=== PATIENT | female | born 1940 | race Caucasian/White ===

== ENCOUNTER 2022-03-24 15:53 | Inpatient (IN) | payer MEDICARE ==
[2022-03-24 16:49] LABS: #Eosinphils 0.2 10x3/uL (0.0-0.5); #Monocytes 0.6 10x3/uL (0.0-1.1); #Neutrophils 4.6 10x3/uL (1.5-8.4); %Basophils 0.5 % (0.0-2.0); %Eosinophils 2.7 % (0.0-6.0); %Lymphocytes 15.6 % (18.0-47.0); %Monocytes 9.7 % (0.0-10.0); %Neutrophils 71.3 % (40.0-75.0); Hemoglobin 11.3 g/dL (12.0-15.5); Mean Corpuscular HGB CONC 32.3 g/dL (32.0-36.0); Mean Corpuscular Hemoglobin 30.3 pg (27.0-33.0); Mean Corpuscular Volume 93.8 fl (81.6-98.3); Mean Platelet Volume 9.3 fl (7.4-10.4); Platelet Count 296 10x3/uL (150-450); RBC Distribution Width 13.2 % (11.5-14.5); Red Blood Cell (RBC) Count 3.73 10x6/uL (3.90-5.03); White Blood Cell (WBC) Count 6.4 10x3/uL (3.5-10.5)
[2022-03-24 17:00] LABS: ALT (SGPT) Less than 6 U/L (8-55); AST (SGOT) 17 U/L (5-34); Albumin 4.2 g/dL (3.4-4.8); Alkaline Phosphatase 68 U/L (40-110); Anion Gap 14 mmol/L (10-20); BUN (Urea Nitrogen) 35 mg/dL (9.8-20.1); Bilirubin, Total 0.3 mg/dL (0.2-1.2); Calc. Creatinine Clearance 0 mL/min (70-130); Carbon Dioxide 24 mmol/L (23-31); Chloride 105 mmol/L (98-107); Globulin 2.4 g/dL (2.4-3.5); Glucose 103 mg/dL (83-110); Potassium 4.6 mmol/L (3.5-5.1); Protein, Total 6.6 g/dL (5.8-8.1); Sodium 138 mmol/L (136-145)
[2022-03-24 17:21] LABS: CKMB 1.9 ng/mL (0-6.6)
[2022-03-24 17:24] LABS: D-Dimer Test 1.02 mg/L FEU (0.19-0.50); INR-International Normal Ratio 0.9; PTT 24.2 sec (22.0-33.0); Prothrombin Time 10.3 sec (9.5-12.1)
[2022-03-24] MEDS ORDERED: Aspirin Chewable 81 MG TAB ONE (17:43)
[2022-03-24 18:10] LABS: SARS-CoV-2 NAA Rapid Test Not Detected (NotDetected)
[2022-03-24] MEDS ORDERED: Furosemide 40 MG/4 ML VIAL ONE (18:45)
[2022-03-24] MEDS ORDERED: Ondansetron PF 4 MG/2 ML Vial IVP PRN (19:17)
[2022-03-24] MEDS ORDERED: Ondansetron ODT 4 MG TAB PO PRN (19:17)
[2022-03-24 20:08] LABS: Troponin I 0.028 ng/mL (< 0.028)
[2022-03-24] MEDS ORDERED: Simvastatin 20 MG TAB PO SCH (21:00)
[2022-03-24] MEDS: Carbidopa/Levodopa 25-100 mg Tablet PO SCH (21:26)
[2022-03-24] MEDS: Atorvastatin Calcium 10 MG TAB PO SCH (21:26)
[2022-03-24] MEDS ORDERED: Nitroglycerin 2% Ointment 1 INCH/1 GM Packet TOP SCH (22:00)
[2022-03-24] MEDS: hydrALAZINE 20 MG/ML VIAL SLOW IVP PRN (22:14)
[2022-03-24 23:16] LABS: Troponin I 0.026 ng/mL (< 0.028)
[2022-03-25] MEDS: Carbidopa/Levodopa 25-100 mg Tablet PO SCH ×5 (00:03→20:14)
[2022-03-25] MEDS: Acetaminophen 325 MG TAB PO PRN ×2 (07:52→18:13)
[2022-03-25] MEDS ORDERED: Furosemide 40 MG/4 ML VIAL SLOW IVP SCH (09:00)
[2022-03-25] MEDS: Aspirin Chewable 81 MG TAB PO SCH (09:57)
[2022-03-25] MEDS: Venlafaxine HCl XR 75 MG CAP PO SCH (09:58)
[2022-03-25] MEDS: Clopidogrel Bisulfate 75 MG TAB PO SCH (10:04)
[2022-03-25] MEDS: Atorvastatin Calcium 10 MG TAB PO SCH (20:15)
[2022-03-25] MEDS ORDERED: Lidocaine 5% Patch TD SCH (22:00)
[2022-03-25] MEDS ORDERED: traMADol HCl 50 MG TAB PO SCH (22:00)
[2022-03-26] MEDS: hydrALAZINE 20 MG/ML VIAL SLOW IVP PRN ×2 (00:48→04:43)
[2022-03-26] MEDS: Carbidopa/Levodopa 25-100 mg Tablet PO SCH ×6 (05:12→23:54)
[2022-03-26 06:00] LABS: Anion Gap 17 mmol/L (10-20); BUN (Urea Nitrogen) 41 mg/dL (9.8-20.1); Calc. Creatinine Clearance 12 mL/min (70-130); Carbon Dioxide 23 mmol/L (23-31); Chloride 102 mmol/L (98-107); Glucose 84 mg/dL (83-110); Potassium 4.5 mmol/L (3.5-5.1); Sodium 137 mmol/L (136-145)
[2022-03-26 06:04] LABS: #Basophils 0.1 10x3/uL (0.0-0.2); #Eosinphils 0.2 10x3/uL (0.0-0.5); #Monocytes 0.8 10x3/uL (0.0-1.1); #Neutrophils 5.7 10x3/uL (1.5-8.4); %Basophils 0.6 % (0.0-2.0); %Lymphocytes 15.1 % (18.0-47.0); %Monocytes 10.3 % (0.0-10.0); %Neutrophils 71.7 % (40.0-75.0); Hemoglobin 10.8 g/dL (12.0-15.5); Mean Corpuscular HGB CONC 33.3 g/dL (32.0-36.0); Mean Corpuscular Hemoglobin 29.9 pg (27.0-33.0); Mean Corpuscular Volume 89.8 fl (81.6-98.3); Mean Platelet Volume 9.7 fl (7.4-10.4); Platelet Count 274 10x3/uL (150-450); RBC Distribution Width 13.3 % (11.5-14.5); Red Blood Cell (RBC) Count 3.61 10x6/uL (3.90-5.03); White Blood Cell (WBC) Count 7.9 10x3/uL (3.5-10.5)
[2022-03-26 06:24] LABS: CKMB 2.1 ng/mL (0-6.6)
[2022-03-26] MEDS: Acetaminophen 325 MG TAB PO PRN ×2 (08:35→21:52)
[2022-03-26] MEDS: Aspirin Chewable 81 MG TAB PO SCH (08:35)
[2022-03-26] MEDS: Clopidogrel Bisulfate 75 MG TAB PO SCH (08:36)
[2022-03-26] MEDS: Venlafaxine HCl XR 75 MG CAP PO SCH (08:37)
[2022-03-26] MEDS ORDERED: Transdermal Patch Removal TOP SCH (16:00)
[2022-03-26] MEDS ORDERED: Polyethylene Glycol 3350 17 GM Packet PO PRN (19:57)
[2022-03-26] MEDS: Atorvastatin Calcium 10 MG TAB PO SCH (21:00)
[2022-03-26] MEDS ORDERED: Lidocaine 5% Patch TD SCH (22:30)
[2022-03-27] MEDS: hydrALAZINE 20 MG/ML VIAL SLOW IVP PRN ×2 (02:17→20:17)
[2022-03-27 05:35] LABS: #Eosinphils 0.2 10x3/uL (0.0-0.5); #Monocytes 0.7 10x3/uL (0.0-1.1); #Neutrophils 3.7 10x3/uL (1.5-8.4); %Basophils 0.2 % (0.0-2.0); %Eosinophils 2.6 % (0.0-6.0); %Lymphocytes 20.1 % (18.0-47.0); %Monocytes 12.1 % (0.0-10.0); %Neutrophils 64.7 % (40.0-75.0); Hemoglobin 9.7 g/dL (12.0-15.5); Mean Corpuscular Hemoglobin 30.2 pg (27.0-33.0); Mean Corpuscular Volume 91.6 fl (81.6-98.3); Mean Platelet Volume 9.2 fl (7.4-10.4); Platelet Count 238 10x3/uL (150-450); RBC Distribution Width 13.4 % (11.5-14.5); Red Blood Cell (RBC) Count 3.21 10x6/uL (3.90-5.03); White Blood Cell (WBC) Count 5.7 10x3/uL (3.5-10.5)
[2022-03-27 05:46] LABS: Anion Gap 14 mmol/L (10-20); BUN (Urea Nitrogen) 45 mg/dL (9.8-20.1); Calc. Creatinine Clearance 12 mL/min (70-130); Calcium 8.6 mg/dL (7.8-10.44); Carbon Dioxide 22 mmol/L (23-31); Chloride 101 mmol/L (98-107); Glucose 84 mg/dL (83-110); Potassium 4.4 mmol/L (3.5-5.1); Sodium 133 mmol/L (136-145)
[2022-03-27] MEDS: Aspirin Chewable 81 MG TAB PO SCH (09:16)
[2022-03-27] MEDS: LANSOPRAZOLE 30 MG CAP PO SCH (09:16)
[2022-03-27] MEDS: Carbidopa/Levodopa 25-100 mg Tablet PO SCH ×4 (09:16→23:17)
[2022-03-27] MEDS: Venlafaxine HCl XR 75 MG CAP PO SCH (09:16)
[2022-03-27] MEDS: Clopidogrel Bisulfate 75 MG TAB PO SCH (09:16)
[2022-03-27] MEDS ORDERED: Transdermal Patch Removal TOP SCH (10:30)
[2022-03-27 18:11] LABS: #Eosinphils 0.1 10x3/uL (0.0-0.5); #Monocytes 0.9 10x3/uL (0.0-1.1); #Neutrophils 5.1 10x3/uL (1.5-8.4); %Basophils 0.4 % (0.0-2.0); %Eosinophils 1.7 % (0.0-6.0); %Lymphocytes 13.3 % (18.0-47.0); %Neutrophils 72.2 % (40.0-75.0); Hemoglobin 10.7 g/dL (12.0-15.5); Mean Corpuscular HGB CONC 32.6 g/dL (32.0-36.0); Mean Corpuscular Hemoglobin 30.1 pg (27.0-33.0); Mean Corpuscular Volume 92.4 fl (81.6-98.3); Mean Platelet Volume 9.2 fl (7.4-10.4); Platelet Count 271 10x3/uL (150-450); RBC Distribution Width 13.5 % (11.5-14.5); Red Blood Cell (RBC) Count 3.55 10x6/uL (3.90-5.03); White Blood Cell (WBC) Count 7.1 10x3/uL (3.5-10.5)
[2022-03-27 18:24] LABS: Lactic Acid 1.5 mmol/L (0.5-2.2)
[2022-03-27 18:29] LABS: ALT (SGPT) Less than 6 U/L (8-55); AST (SGOT) 15 U/L (5-34); Albumin 3.8 g/dL (3.4-4.8); Alkaline Phosphatase 62 U/L (40-110); Anion Gap 16 mmol/L (10-20); BUN (Urea Nitrogen) 46 mg/dL (9.8-20.1); Bilirubin, Total 0.3 mg/dL (0.2-1.2); Calc. Creatinine Clearance 12 mL/min (70-130); Calcium 8.8 mg/dL (7.8-10.44); Carbon Dioxide 23 mmol/L (23-31); Chloride 98 mmol/L (98-107); Globulin 2.7 g/dL (2.4-3.5); Glucose 95 mg/dL (83-110); Potassium 4.7 mmol/L (3.5-5.1); Protein, Total 6.5 g/dL (5.8-8.1); Sodium 132 mmol/L (136-145)
[2022-03-27] MEDS: Acetaminophen 325 MG TAB PO PRN (18:47)
[2022-03-27] MEDS: Atorvastatin Calcium 10 MG TAB PO SCH (23:17)
[2022-03-27] MEDS ORDERED: Lidocaine 5% Patch TD SCH (23:59)
[2022-03-28] MEDS: Carbidopa/Levodopa 25-100 mg Tablet PO SCH ×6 (00:27→22:30)
[2022-03-28] MEDS: Acetaminophen 325 MG TAB PO PRN ×2 (00:27→16:13)
[2022-03-28 05:22] LABS: #Eosinphils 0.2 10x3/uL (0.0-0.5); #Monocytes 0.6 10x3/uL (0.0-1.1); #Neutrophils 3.9 10x3/uL (1.5-8.4); %Basophils 0.5 % (0.0-2.0); %Eosinophils 2.6 % (0.0-6.0); %Lymphocytes 18.1 % (18.0-47.0); %Monocytes 10.6 % (0.0-10.0); %Neutrophils 67.9 % (40.0-75.0); Hemoglobin 9.6 g/dL (12.0-15.5); Mean Corpuscular HGB CONC 32.7 g/dL (32.0-36.0); Mean Corpuscular Hemoglobin 30.3 pg (27.0-33.0); Mean Corpuscular Volume 92.7 fl (81.6-98.3); Mean Platelet Volume 9.4 fl (7.4-10.4); Platelet Count 250 10x3/uL (150-450); RBC Distribution Width 13.2 % (11.5-14.5); Red Blood Cell (RBC) Count 3.17 10x6/uL (3.90-5.03); White Blood Cell (WBC) Count 5.8 10x3/uL (3.5-10.5)
[2022-03-28 05:30] LABS: Anion Gap 14 mmol/L (10-20); BUN (Urea Nitrogen) 45 mg/dL (9.8-20.1); Calc. Creatinine Clearance 14 mL/min (70-130); Calcium 8.7 mg/dL (7.8-10.44); Carbon Dioxide 24 mmol/L (23-31); Chloride 103 mmol/L (98-107); Glucose 86 mg/dL (83-110); Potassium 4.6 mmol/L (3.5-5.1); Sodium 136 mmol/L (136-145)
[2022-03-28] MEDS: NIFEdipine XL 30 MG TAB PO SCH (09:32)
[2022-03-28] MEDS: Aspirin Chewable 81 MG TAB PO SCH (09:32)
[2022-03-28] MEDS: Venlafaxine HCl XR 75 MG CAP PO SCH (09:32)
[2022-03-28] MEDS: Cholecalciferol 1,000 UNITS (25 MCG) TAB PO SCH (09:32)
[2022-03-28] MEDS: Calcium Carbonate 500 MG TAB PO SCH (09:32)
[2022-03-28] MEDS: Stress 600 With Zinc 1 TAB PO SCH (09:32)
[2022-03-28] MEDS: Clopidogrel Bisulfate 75 MG TAB PO SCH (09:32)
[2022-03-28] MEDS: LANSOPRAZOLE 30 MG CAP PO SCH (09:33)
[2022-03-28] MEDS: traMADol HCl 50 MG TAB PO PRN ×2 (11:50→18:26)
[2022-03-28] MEDS ORDERED: Transdermal Patch Removal TOP SCH (12:00)
[2022-03-28] MEDS: Mirtazapine 15 MG TAB PO SCH (20:36)
[2022-03-28] MEDS: Atorvastatin Calcium 10 MG TAB PO SCH (20:37)
[2022-03-28] MEDS: Simethicone Chewable 80 MG TAB PO PRN (20:41)
[2022-03-29] MEDS: Carbidopa/Levodopa 25-100 mg Tablet PO SCH ×5 (05:07→20:57)
[2022-03-29 06:39] LABS: #Eosinphils 0.2 10x3/uL (0.0-0.5); #Monocytes 0.6 10x3/uL (0.0-1.1); #Neutrophils 4.8 10x3/uL (1.5-8.4); %Basophils 0.5 % (0.0-2.0); %Eosinophils 2.5 % (0.0-6.0); %Lymphocytes 13.1 % (18.0-47.0); %Monocytes 8.9 % (0.0-10.0); %Neutrophils 74.7 % (40.0-75.0); Hemoglobin 9.9 g/dL (12.0-15.5); Mean Corpuscular HGB CONC 32.9 g/dL (32.0-36.0); Mean Corpuscular Volume 91.2 fl (81.6-98.3); Mean Platelet Volume 9.4 fl (7.4-10.4); Platelet Count 277 10x3/uL (150-450); RBC Distribution Width 13.5 % (11.5-14.5); White Blood Cell (WBC) Count 6.4 10x3/uL (3.5-10.5)
[2022-03-29 06:49] LABS: Anion Gap 14 mmol/L (10-20); BUN (Urea Nitrogen) 45 mg/dL (9.8-20.1); Calc. Creatinine Clearance 19 mL/min (70-130); Calcium 8.9 mg/dL (7.8-10.44); Carbon Dioxide 24 mmol/L (23-31); Chloride 105 mmol/L (98-107); Glucose 89 mg/dL (83-110); Potassium 4.7 mmol/L (3.5-5.1); Sodium 138 mmol/L (136-145)
[2022-03-29] MEDS: Calcium Carbonate 500 MG TAB PO SCH (09:32)
[2022-03-29] MEDS: Aspirin Chewable 81 MG TAB PO SCH (09:32)
[2022-03-29] MEDS: Venlafaxine HCl XR 75 MG CAP PO SCH (09:32)
[2022-03-29] MEDS: Stress 600 With Zinc 1 TAB PO SCH (09:32)
[2022-03-29] MEDS: Polyethylene Glycol 3350 17 GM Packet PO SCH (09:37)
[2022-03-29] MEDS: Cholecalciferol 1,000 UNITS (25 MCG) TAB PO SCH (09:37)
[2022-03-29] MEDS: Clopidogrel Bisulfate 75 MG TAB PO SCH (09:37)
[2022-03-29] MEDS: NIFEdipine XL 30 MG TAB PO SCH (09:38)
[2022-03-29] MEDS: LANSOPRAZOLE 30 MG CAP PO SCH (09:39)
[2022-03-29] MEDS: Simethicone Chewable 80 MG TAB PO PRN ×2 (11:29→18:56)
[2022-03-29] MEDS ORDERED: NIFEdipine XL 60 MG TAB PO SCH (14:00)
[2022-03-29] MEDS: traMADol HCl 50 MG TAB PO PRN (20:55)
[2022-03-29] MEDS: Mirtazapine 15 MG TAB PO SCH (20:57)
[2022-03-29] MEDS: Atorvastatin Calcium 10 MG TAB PO SCH (20:57)
[2022-03-30] MEDS: Carbidopa/Levodopa 25-100 mg Tablet PO SCH ×5 (05:09→21:06)
[2022-03-30 05:17] LABS: #Eosinphils 0.2 10x3/uL (0.0-0.5); #Monocytes 0.8 10x3/uL (0.0-1.1); #Neutrophils 4.1 10x3/uL (1.5-8.4); %Basophils 0.3 % (0.0-2.0); %Eosinophils 3.5 % (0.0-6.0); %Monocytes 12.4 % (0.0-10.0); %Neutrophils 65.3 % (40.0-75.0); Hemoglobin 9.8 g/dL (12.0-15.5); Mean Corpuscular HGB CONC 33.9 g/dL (32.0-36.0); Mean Corpuscular Hemoglobin 30.7 pg (27.0-33.0); Mean Corpuscular Volume 90.6 fl (81.6-98.3); Mean Platelet Volume 9.3 fl (7.4-10.4); Platelet Count 259 10x3/uL (150-450); RBC Distribution Width 13.6 % (11.5-14.5); Red Blood Cell (RBC) Count 3.19 10x6/uL (3.90-5.03); White Blood Cell (WBC) Count 6.3 10x3/uL (3.5-10.5)
[2022-03-30 05:38] LABS: Anion Gap 18 mmol/L (10-20); BUN (Urea Nitrogen) 46 mg/dL (9.8-20.1); Calc. Creatinine Clearance 19 mL/min (70-130); Calcium 8.8 mg/dL (7.8-10.44); Carbon Dioxide 22 mmol/L (23-31); Chloride 104 mmol/L (98-107); Glucose 78 mg/dL (83-110); Potassium 4.9 mmol/L (3.5-5.1); Sodium 139 mmol/L (136-145)
[2022-03-30] MEDS: Aspirin Chewable 81 MG TAB PO SCH (08:46)
[2022-03-30] MEDS: LANSOPRAZOLE 30 MG CAP PO SCH (08:46)
[2022-03-30] MEDS: Cholecalciferol 1,000 UNITS (25 MCG) TAB PO SCH (08:47)
[2022-03-30] MEDS: Calcium Carbonate 500 MG TAB PO SCH (08:47)
[2022-03-30] MEDS: Polyethylene Glycol 3350 17 GM Packet PO SCH (08:48)
[2022-03-30] MEDS: Stress 600 With Zinc 1 TAB PO SCH (08:48)
[2022-03-30] MEDS: NIFEdipine XL 30 MG TAB PO SCH (08:48)
[2022-03-30] MEDS: Clopidogrel Bisulfate 75 MG TAB PO SCH (08:49)
[2022-03-30] MEDS: Venlafaxine HCl XR 75 MG CAP PO SCH (08:49)
[2022-03-30] MEDS ORDERED: NIFEdipine XL 30 MG TAB PO SCH (09:00)
[2022-03-30] MEDS: Simethicone Chewable 80 MG TAB PO PRN ×2 (10:25→21:05)
[2022-03-30] MEDS: Lidocaine 5% Patch TD SCH (14:40)
[2022-03-30] MEDS: Acetaminophen 325 MG TAB PO PRN (17:04)
[2022-03-30] MEDS: Atorvastatin Calcium 10 MG TAB PO SCH (21:05)
[2022-03-30] MEDS: Mirtazapine 15 MG TAB PO SCH (21:05)
[2022-03-30] MEDS: traMADol HCl 50 MG TAB PO PRN (21:06)
[2022-03-31] MEDS: Transdermal Patch Removal TOP SCH (00:13)
[2022-03-31 09:00] LABS: Anion Gap 14 mmol/L (10-20); BUN (Urea Nitrogen) 44 mg/dL (9.8-20.1); Calc. Creatinine Clearance 19 mL/min (70-130); Calcium 8.9 mg/dL (7.8-10.44); Carbon Dioxide 25 mmol/L (23-31); Chloride 108 mmol/L (98-107); Glucose 73 mg/dL (83-110); Sodium 142 mmol/L (136-145)
[2022-03-31] MEDS: Venlafaxine HCl XR 75 MG CAP PO SCH (09:35)
[2022-03-31] MEDS: Polyethylene Glycol 3350 17 GM Packet PO SCH (09:35)
[2022-03-31] MEDS: Aspirin Chewable 81 MG TAB PO SCH (09:35)
[2022-03-31] MEDS: Carbidopa/Levodopa 25-100 mg Tablet PO SCH ×4 (09:35→20:50)
[2022-03-31] MEDS: Stress 600 With Zinc 1 TAB PO SCH (09:35)
[2022-03-31] MEDS: NIFEdipine XL 30 MG TAB PO SCH (09:35)
[2022-03-31] MEDS: Calcium Carbonate 500 MG TAB PO SCH (09:40)
[2022-03-31] MEDS: Cholecalciferol 1,000 UNITS (25 MCG) TAB PO SCH (09:42)
[2022-03-31] MEDS: Clopidogrel Bisulfate 75 MG TAB PO SCH (09:42)
[2022-03-31] MEDS: LANSOPRAZOLE 30 MG CAP PO SCH (09:46)
[2022-03-31] MEDS: traMADol HCl 50 MG TAB PO PRN ×2 (10:38→20:50)
[2022-03-31] MEDS: Lidocaine 5% Patch TD SCH (13:33)
[2022-03-31] MEDS: Atorvastatin Calcium 10 MG TAB PO SCH (20:50)
[2022-03-31] MEDS: Mirtazapine 15 MG TAB PO SCH (20:51)
[2022-04-01] MEDS: Transdermal Patch Removal TOP SCH (01:05)
[2022-04-01 05:29] LABS: Anion Gap 19 mmol/L (10-20); BUN (Urea Nitrogen) 44 mg/dL (9.8-20.1); Calc. Creatinine Clearance 18 mL/min (70-130); Calcium 9.2 mg/dL (7.8-10.44); Carbon Dioxide 23 mmol/L (23-31); Chloride 104 mmol/L (98-107); Glucose 91 mg/dL (83-110); Potassium 4.8 mmol/L (3.5-5.1); Sodium 141 mmol/L (136-145)
[2022-04-01] MEDS: traMADol HCl 50 MG TAB PO PRN ×2 (08:37→21:13)
[2022-04-01] MEDS: Cholecalciferol 1,000 UNITS (25 MCG) TAB PO SCH (08:38)
[2022-04-01] MEDS: Venlafaxine HCl XR 75 MG CAP PO SCH (08:39)
[2022-04-01] MEDS: NIFEdipine XL 30 MG TAB PO SCH (08:41)
[2022-04-01] MEDS: Clopidogrel Bisulfate 75 MG TAB PO SCH (08:42)
[2022-04-01] MEDS: Aspirin Chewable 81 MG TAB PO SCH (08:42)
[2022-04-01] MEDS: Stress 600 With Zinc 1 TAB PO SCH (08:43)
[2022-04-01] MEDS: Calcium Carbonate 500 MG TAB PO SCH (08:43)
[2022-04-01] MEDS: LANSOPRAZOLE 30 MG CAP PO SCH (08:44)
[2022-04-01] MEDS: Carbidopa/Levodopa 25-100 mg Tablet PO SCH ×4 (08:44→21:14)
[2022-04-01] MEDS: Polyethylene Glycol 3350 17 GM Packet PO SCH (08:45)
[2022-04-01] MEDS: Lidocaine 5% Patch TD SCH (12:52)
[2022-04-01] MEDS: Mirtazapine 15 MG TAB PO SCH (21:13)
[2022-04-01] MEDS: Atorvastatin Calcium 10 MG TAB PO SCH (21:13)
[2022-04-02] MEDS: Transdermal Patch Removal TOP SCH (01:18)
[2022-04-02] MEDS: Polyethylene Glycol 3350 17 GM Packet PO SCH (09:45)
[2022-04-02] MEDS: Aspirin Chewable 81 MG TAB PO SCH (09:46)
[2022-04-02] MEDS: Cholecalciferol 1,000 UNITS (25 MCG) TAB PO SCH (09:48)
[2022-04-02] MEDS: Calcium Carbonate 500 MG TAB PO SCH (09:48)
[2022-04-02] MEDS: Clopidogrel Bisulfate 75 MG TAB PO SCH (09:48)
[2022-04-02] MEDS: Carbidopa/Levodopa 25-100 mg Tablet PO SCH ×4 (09:48→20:36)
[2022-04-02] MEDS: NIFEdipine XL 30 MG TAB PO SCH (09:49)
[2022-04-02] MEDS: Stress 600 With Zinc 1 TAB PO SCH (09:50)
[2022-04-02] MEDS: LANSOPRAZOLE 30 MG CAP PO SCH (09:50)
[2022-04-02] MEDS: Venlafaxine HCl XR 75 MG CAP PO SCH (09:51)
[2022-04-02] MEDS: Lidocaine 5% Patch TD SCH (13:38)
[2022-04-02] MEDS: Acetaminophen 325 MG TAB PO PRN (18:03)
[2022-04-02] MEDS: Atorvastatin Calcium 10 MG TAB PO SCH (20:36)
[2022-04-02] MEDS: traMADol HCl 50 MG TAB PO PRN (20:36)
[2022-04-02] MEDS: Mirtazapine 15 MG TAB PO SCH (20:36)
[2022-04-03] MEDS: Transdermal Patch Removal TOP SCH (04:43)
[2022-04-03] MEDS: Cholecalciferol 1,000 UNITS (25 MCG) TAB PO SCH (08:48)
[2022-04-03] MEDS: Clopidogrel Bisulfate 75 MG TAB PO SCH (08:48)
[2022-04-03] MEDS: Venlafaxine HCl XR 75 MG CAP PO SCH (08:49)
[2022-04-03] MEDS: NIFEdipine XL 30 MG TAB PO SCH (08:49)
[2022-04-03] MEDS: Stress 600 With Zinc 1 TAB PO SCH (08:49)
[2022-04-03] MEDS: Carbidopa/Levodopa 25-100 mg Tablet PO SCH ×4 (08:49→20:58)
[2022-04-03] MEDS: Aspirin Chewable 81 MG TAB PO SCH (08:49)
[2022-04-03] MEDS: LANSOPRAZOLE 30 MG CAP PO SCH (08:52)
[2022-04-03] MEDS: Polyethylene Glycol 3350 17 GM Packet PO SCH (08:53)
[2022-04-03] MEDS: Calcium Carbonate 500 MG TAB PO SCH (09:43)
[2022-04-03] MEDS: Acetaminophen 325 MG TAB PO PRN ×2 (10:59→15:45)
[2022-04-03] MEDS: Lidocaine 5% Patch TD SCH (12:49)
[2022-04-03] MEDS ORDERED: Methyl Salicylate/Menthol 85 GM TUBE TOP PRN (15:33)
[2022-04-03] MEDS: Mirtazapine 15 MG TAB PO SCH (20:58)
[2022-04-03] MEDS: Atorvastatin Calcium 10 MG TAB PO SCH (20:58)
[2022-04-04] MEDS: Transdermal Patch Removal TOP SCH (02:05)
[2022-04-04 05:24] VITALS: BMI 21.4
[2022-04-04] MEDS: Polyethylene Glycol 3350 17 GM Packet PO SCH (08:41)
[2022-04-04] MEDS: Aspirin Chewable 81 MG TAB PO SCH (08:42)
[2022-04-04] MEDS: Cholecalciferol 1,000 UNITS (25 MCG) TAB PO SCH (08:42)
[2022-04-04] MEDS: Calcium Carbonate 500 MG TAB PO SCH (08:42)
[2022-04-04] MEDS: Clopidogrel Bisulfate 75 MG TAB PO SCH (08:42)
[2022-04-04] MEDS: Venlafaxine HCl XR 75 MG CAP PO SCH (08:42)
[2022-04-04] MEDS: Carbidopa/Levodopa 25-100 mg Tablet PO SCH ×3 (08:42→17:37)
[2022-04-04] MEDS: NIFEdipine XL 30 MG TAB PO SCH (08:43)
[2022-04-04] MEDS: Stress 600 With Zinc 1 TAB PO SCH (08:43)
[2022-04-04] MEDS: LANSOPRAZOLE 30 MG CAP PO SCH (08:43)
[2022-04-04] MEDS: Lidocaine 5% Patch TD SCH (14:28)
[2022-04-04 18:58] VITALS: BP 173/72; TEMP 97.6
== END 2022-04-04 19:19 | disposition home health service (06) | DRG 291 ==
LOC: CSHERS 15:53 → CSHTELE 20:33
PROVIDERS: ADMIT Internal Medicine; ATTEND Internal Medicine
DX: I13.0 Hypertensive heart and chronic kidney disease with heart failure and stage 1 through stage 4 chronic kidney disease, or unspecified chronic kidney disease (principal); I50.33 Acute on chronic diastolic (congestive) heart failure; J96.01 Acute respiratory failure with hypoxia; N18.4 Chronic kidney disease, stage 4 (severe); E44.0 Moderate protein-calorie malnutrition; N17.9 Acute kidney failure, unspecified; E87.1 Hypo-osmolality and hyponatremia; R63.0 Anorexia; R10.32 Left lower quadrant pain; I25.10 Atherosclerotic heart disease of native coronary artery without angina pectoris; G20 Parkinson's disease; I73.9 Peripheral vascular disease, unspecified; E78.5 Hyperlipidemia, unspecified; I95.1 Orthostatic hypotension; M19.90 Unspecified osteoarthritis, unspecified site; F32.A Depression, unspecified; G89.29 Other chronic pain; J43.9 Emphysema, unspecified; M48.00 Spinal stenosis, site unspecified; K59.00 Constipation, unspecified; M54.50 Low back pain, unspecified; Z20.822 Contact with and (suspected) exposure to COVID-19; Z68.21 Body mass index [BMI] 21.0-21.9, adult; Z95.5 Presence of coronary angioplasty implant and graft; Z88.8 Allergy status to other drugs, medicaments and biological substances; Z88.2 Allergy status to sulfonamides; Z90.49 Acquired absence of other specified parts of digestive tract; Z90.710 Acquired absence of both cervix and uterus; Z98.891 History of uterine scar from previous surgery; Z98.49 Cataract extraction status, unspecified eye; Z98.890 Other specified postprocedural states; Z72.89 Other problems related to lifestyle; Z82.49 Family history of ischemic heart disease and other diseases of the circulatory system; Z87.891 Personal history of nicotine dependence
CPT/HCPCS: 36415; 71045; 74176; 76700; 80048; 80053; 82553; 83605; 83735; 83880; 84484; 85025; 85379; 85610; 85730; 93005; 93306; 93970; 94640; 94760; 96374; J0360; J1940; J7620; U0002

== ENCOUNTER 2023-02-04 17:37 | Emergency (ER) | payer MEDICARE ==
[2023-02-04] MEDS ORDERED: Ondansetron PF 4 MG/2 ML Vial ONE (18:23)
[2023-02-04 18:56] LABS: #Eosinphils 0.1 10x3/uL (0.0-0.5); #Monocytes 0.6 10x3/uL (0.0-1.1); #Neutrophils 5.6 10x3/uL (1.5-8.4); %Basophils 0.4 % (0.0-2.0); %Eosinophils 1.3 % (0.0-6.0); %Lymphocytes 15.4 % (18.0-47.0); %Monocytes 8.5 % (0.0-10.0); %Neutrophils 74.1 % (40.0-75.0); Hemoglobin 11.4 g/dL (12.0-15.5); Mean Corpuscular HGB CONC 32.9 g/dL (32.0-36.0); Mean Corpuscular Hemoglobin 30.2 pg (27.0-33.0); Mean Corpuscular Volume 91.8 fl (81.6-98.3); Mean Platelet Volume 9.6 fl (7.4-10.4); Platelet Count 301 10x3/uL (150-450); RBC Distribution Width 13.8 % (11.5-14.5); Red Blood Cell (RBC) Count 3.77 10x6/uL (3.90-5.03); White Blood Cell (WBC) Count 7.5 10x3/uL (3.5-10.5)
[2023-02-04 19:23] LABS: ALT (SGPT) Less than 6 U/L (8-55); AST (SGOT) 16 U/L (5-34); Albumin 4.3 g/dL (3.4-4.8); Alkaline Phosphatase 60 U/L (40-110); Anion Gap 17 mmol/L (10-20); BUN (Urea Nitrogen) 29 mg/dL (9.8-20.1); Bilirubin, Total 0.3 mg/dL (0.2-1.2); CK (CPK) 83 U/L (29-168); Calc. Creatinine Clearance 0 mL/min (70-130); Calcium 9.4 mg/dL (7.8-10.44); Carbon Dioxide 20 mmol/L (23-31); Estimated GFR 23; Globulin 2.3 g/dL (2.4-3.5); Glucose 84 mg/dL (83-110); Protein, Total 6.6 g/dL (5.8-8.1); Sodium 136 mmol/L (136-145)
[2023-02-04 19:53] LABS: Chloride 103 mmol/L (98-107); Potassium 4.3 mmol/L (3.5-5.1)
== END 2023-02-04 20:22 | disposition home or self-care (01) ==
LOC: CSHERS 17:37
DX: R06.02 Shortness of breath (principal); I25.10 Atherosclerotic heart disease of native coronary artery without angina pectoris; E78.5 Hyperlipidemia, unspecified; I11.0 Hypertensive heart disease with heart failure; I50.9 Heart failure, unspecified; Z79.899 Other long term (current) drug therapy
CPT/HCPCS: 71045; 80053; 82550; 83605; 83880; 84484; 85025; 93005; 96374; J2405

== ENCOUNTER 2023-03-14 13:01 | Inpatient (IN) | payer MEDICARE ==
[2023-03-14 13:57] LABS: #Basophils 0.1 10x3/uL (0.0-0.2); #Eosinphils 0.3 10x3/uL (0.0-0.5); #Monocytes 0.7 10x3/uL (0.0-1.1); #Neutrophils 5.8 10x3/uL (1.5-8.4); %Basophils 0.6 % (0.0-2.0); %Eosinophils 3.4 % (0.0-6.0); %Lymphocytes 14.8 % (18.0-47.0); %Monocytes 9.2 % (0.0-10.0); %Neutrophils 71.6 % (40.0-75.0); Hemoglobin 9.7 g/dL (12.0-15.5); Mean Corpuscular HGB CONC 32.1 g/dL (32.0-36.0); Mean Corpuscular Volume 93.5 fl (81.6-98.3); Mean Platelet Volume 9.9 fl (7.4-10.4); Platelet Count 298 10x3/uL (150-450); RBC Distribution Width 14.8 % (11.5-14.5); Red Blood Cell (RBC) Count 3.23 10x6/uL (3.90-5.03)
[2023-03-14 14:32] LABS: ALT (SGPT) Less than 6 U/L (8-55); AST (SGOT) 12 U/L (5-34); Albumin 3.6 g/dL (3.4-4.8); Alkaline Phosphatase 51 U/L (40-110); Anion Gap 14 mmol/L (10-20); BUN (Urea Nitrogen) 38 mg/dL (9.8-20.1); Bilirubin, Total 0.3 mg/dL (0.2-1.2); Calc. Creatinine Clearance 0 mL/min (70-130); Calcium 8.6 mg/dL (7.8-10.44); Carbon Dioxide 18 mmol/L (23-31); Chloride 115 mmol/L (98-107); Estimated GFR 24; Globulin 2.3 g/dL (2.4-3.5); Glucose 76 mg/dL (83-110); Potassium 4.5 mmol/L (3.5-5.1); Protein, Total 5.9 g/dL (5.8-8.1); Sodium 142 mmol/L (136-145)
[2023-03-14 14:50] LABS: CKMB 1.7 ng/mL (0-6.6)
[2023-03-14] MEDS ORDERED: cefTRIAXone (ROCEPHIN) 2 GM VIAL ONE (15:01)
[2023-03-14 15:05] LABS: Bilirubin Neg (Negative); Blood, Urine 10 (Negative); Clarity Clear (Clear); Glucose, Urine (Dipstick) Normal (Negative); Ketone, Urine Negative (Negative); Leukocyte 25 (Negative); Nitrite Negative (Negative); Protein, Urine (Dipstick) 500 mg/dl (Neg-Trace); Specific Gravity, Urine 1.015 (1.005-1.030); Urobilinogen Normal mg/dL (Less than 2)
[2023-03-14 15:21] LABS: Squamous Epithelial 0-3 HPF (0-3)
[2023-03-14 15:22] LABS: Bacteria/HPF None Seen HPF (None Seen); RBC/HPF 0-3 HPF (0-3); Renal Epithelial 0-3 HPF (None Seen); WBC/HPF 0-3 HPF (0-3)
[2023-03-14] MEDS ORDERED: Aspirin 325 MG TAB ONE (17:09)
[2023-03-14] MEDS ORDERED: Heparin 25,000 units/D5W 500 ML ONE (17:10)
[2023-03-14] MEDS ORDERED: Heparin 5,000 UNITS/ML VIAL ONE (17:18)
[2023-03-14] MEDS ORDERED: Calcium Carbonate 500 MG ChewTAB PO PRN (19:15)
[2023-03-14] MEDS ORDERED: Loperamide HCl 2 MG CAP PO PRN (19:15)
[2023-03-14] MEDS ORDERED: Ondansetron PF 4 MG/2 ML Vial IVP PRN (19:15)
[2023-03-14] MEDS ORDERED: Guaifenesin DM 100-10/5 ML UDCUP PO PRN (19:15)
[2023-03-14] MEDS ORDERED: Acetaminophen 325 MG TAB PO PRN (19:15)
[2023-03-14] MEDS ORDERED: Senokot S 8.6-50 MG TAB PO PRN (19:15)
[2023-03-14] MEDS ORDERED: Melatonin 3 MG TAB PO PRN (19:18)
[2023-03-14] MEDS ORDERED: Furosemide 40 MG/4 ML VIAL SLOW IVP SCH (20:30)
[2023-03-14] MEDS ORDERED: Furosemide 40 MG/4 ML VIAL ONE (20:35)
[2023-03-14] MEDS ORDERED: Atorvastatin Calcium 10 MG TAB ONE (20:36)
[2023-03-14] MEDS: Sodium Bicarbonate Tab 325 MG TAB PO SCH (21:09)
[2023-03-14] MEDS: Carbidopa/Levodopa 25-100 mg Tablet PO SCH (21:09)
[2023-03-14] MEDS: Atorvastatin Calcium 10 MG TAB PO SCH (21:10)
[2023-03-14] MEDS ORDERED: Nitroglycerin 2% Ointment 1 INCH/1 GM Packet TOP SCH (22:15)
[2023-03-14] MEDS ORDERED: Nitroglycerin 2% Ointment 1 INCH/1 GM Packet ONE (23:31)
[2023-03-15] MEDS ORDERED: Amlodipine 5 MG TAB ONE (02:47)
[2023-03-15 05:12] LABS: #Basophils 0.1 10x3/uL (0.0-0.2); #Eosinphils 0.3 10x3/uL (0.0-0.5); #Monocytes 0.7 10x3/uL (0.0-1.1); #Neutrophils 5.4 10x3/uL (1.5-8.4); %Basophils 0.8 % (0.0-2.0); %Eosinophils 3.6 % (0.0-6.0); %Lymphocytes 20.9 % (18.0-47.0); %Monocytes 8.6 % (0.0-10.0); %Neutrophils 65.7 % (40.0-75.0); Hemoglobin 10.2 g/dL (12.0-15.5); Mean Corpuscular HGB CONC 32.8 g/dL (32.0-36.0); Mean Corpuscular Hemoglobin 29.7 pg (27.0-33.0); Mean Corpuscular Volume 90.7 fl (81.6-98.3); Mean Platelet Volume 9.8 fl (7.4-10.4); Platelet Count 317 10x3/uL (150-450); RBC Distribution Width 14.7 % (11.5-14.5); Red Blood Cell (RBC) Count 3.43 10x6/uL (3.90-5.03); White Blood Cell (WBC) Count 8.3 10x3/uL (3.5-10.5)
[2023-03-15] MEDS ORDERED: cloNIDine 0.1 MG TAB ONE (05:23)
[2023-03-15 05:26] LABS: Anion Gap 16 mmol/L (10-20); BUN (Urea Nitrogen) 35 mg/dL (9.8-20.1); Calc. Creatinine Clearance 0 mL/min (70-130); Calcium 8.9 mg/dL (7.8-10.44); Carbon Dioxide 18 mmol/L (23-31); Chloride 113 mmol/L (98-107); Estimated GFR 28; Glucose 80 mg/dL (83-110); Potassium 4.4 mmol/L (3.5-5.1); Sodium 143 mmol/L (136-145)
[2023-03-15 05:49] LABS: CKMB 1.9 ng/mL (0-6.6)
[2023-03-15] MEDS ORDERED: Aspirin Chewable 81 MG TAB ONE (07:32)
[2023-03-15] MEDS ORDERED: Clopidogrel Bisulfate 75 MG TAB ONE (07:32)
[2023-03-15] MEDS ORDERED: Calcium Carbonate 500 MG ChewTAB ONE (07:33)
[2023-03-15] MEDS ORDERED: Heparin 5,000 UNITS/ML VIAL ONE (07:33)
[2023-03-15] MEDS ORDERED: Furosemide 40 MG/4 ML VIAL ONE (07:33)
[2023-03-15] MEDS ORDERED: NIFEdipine XL 30 MG TAB ONE (07:35)
[2023-03-15] MEDS ORDERED: Cholecalciferol 1,000 UNITS (25 MCG) TAB ONE (07:36)
[2023-03-15] MEDS ORDERED: NIFEdipine XL 30 MG TAB PO SCH ×2 (09:00→21:00)
[2023-03-15] MEDS ORDERED: Senokot S 8.6-50 MG TAB PO PRN (10:15)
[2023-03-15] MEDS: Calcium Carbonate 500 MG TAB PO SCH (10:37)
[2023-03-15] MEDS: Aspirin Chewable 81 MG TAB PO SCH (10:37)
[2023-03-15] MEDS: Clopidogrel Bisulfate 75 MG TAB PO SCH (10:38)
[2023-03-15] MEDS: Carbidopa/Levodopa 25-100 mg Tablet PO SCH ×4 (10:38→20:54)
[2023-03-15] MEDS: Cholecalciferol 1,000 UNITS (25 MCG) TAB PO SCH (10:38)
[2023-03-15] MEDS: Furosemide 20 MG/2 ML VIAL SLOW IVP SCH (10:38)
[2023-03-15] MEDS: Heparin 5,000 UNITS/ML VIAL SC SCH ×3 (10:39→20:56)
[2023-03-15] MEDS: Sodium Bicarbonate Tab 325 MG TAB PO SCH ×2 (10:39→20:57)
[2023-03-15] MEDS: Multivitamin w/Zinc Stress 1 TAB PO SCH (10:39)
[2023-03-15] MEDS: Venlafaxine XR 37.5 MG CAP PO SCH (10:40)
[2023-03-15 10:49] VITALS: BMI 21.4
[2023-03-15] MEDS ORDERED: cefTRIAXone\\ROCEPHIN 1 GM in Sodium Chloride 0.9% 100 ML IVPB SCH (18:00)
[2023-03-15] MEDS ORDERED: ALPRAZolam 0.25 MG TAB PO SCH (20:45)
[2023-03-15] MEDS: Atorvastatin Calcium 10 MG TAB PO SCH (20:57)
[2023-03-16] MEDS: Furosemide 20 MG/2 ML VIAL SLOW IVP SCH (06:33)
[2023-03-16 08:41] VITALS: BP 154/82; TEMP 98.6
[2023-03-16] MEDS: Aspirin Chewable 81 MG TAB PO SCH (09:04)
[2023-03-16] MEDS: Calcium Carbonate 500 MG TAB PO SCH (09:05)
[2023-03-16] MEDS: Clopidogrel Bisulfate 75 MG TAB PO SCH (09:05)
[2023-03-16] MEDS: Carbidopa/Levodopa 25-100 mg Tablet PO SCH (09:05)
[2023-03-16] MEDS: Venlafaxine XR 37.5 MG CAP PO SCH (09:06)
[2023-03-16] MEDS: Sodium Bicarbonate Tab 325 MG TAB PO SCH (09:09)
[2023-03-16] MEDS: Heparin 5,000 UNITS/ML VIAL SC SCH (09:19)
[2023-03-16] MEDS: Multivitamin w/Zinc Stress 1 TAB PO SCH (09:27)
[2023-03-16] MEDS: Cholecalciferol 1,000 UNITS (25 MCG) TAB PO SCH (09:27)
== END 2023-03-16 13:05 | disposition home or self-care (01) | DRG 291 ==
LOC: CSHERS 13:01 → CSHERHOLD 18:08 → CSHTELE 03-15 13:52
PROVIDERS: ADMIT Internal Medicine; ATTEND Internal Medicine
DX: I13.0 Hypertensive heart and chronic kidney disease with heart failure and stage 1 through stage 4 chronic kidney disease, or unspecified chronic kidney disease (principal); G93.41 Metabolic encephalopathy; I50.33 Acute on chronic diastolic (congestive) heart failure; N39.0 Urinary tract infection, site not specified; N18.4 Chronic kidney disease, stage 4 (severe); E87.20 Acidosis, unspecified; G20 Parkinson's disease; I25.10 Atherosclerotic heart disease of native coronary artery without angina pectoris; I73.9 Peripheral vascular disease, unspecified; R09.02 Hypoxemia; E78.5 Hyperlipidemia, unspecified; Z90.49 Acquired absence of other specified parts of digestive tract; Z90.710 Acquired absence of both cervix and uterus; Z98.890 Other specified postprocedural states; Z88.2 Allergy status to sulfonamides; Z88.8 Allergy status to other drugs, medicaments and biological substances; Z79.82 Long term (current) use of aspirin; Z79.899 Other long term (current) drug therapy; Z87.891 Personal history of nicotine dependence
CPT/HCPCS: 36415; 36416; 71045; 80048; 80053; 81003; 81015; 82553; 83605; 83880; 84443; 84484; 85025; 85730; 87040; 87086; 93005; 93306; 94760; 94762; 96365; 96375; J0696; J1644; J1940; J3490

== ENCOUNTER 2023-09-01 23:20 | Observation (INO) | payer MEDICARE ==
[2023-09-02] MEDS ORDERED: HYDROcodone/Acetaminophen 5/325 mg Tablet PO PRN (03:08)
[2023-09-02] MEDS ORDERED: Acetaminophen 325 MG TAB PO PRN (03:08)
[2023-09-02] MEDS ORDERED: Guaifenesin DM 100-10/5 ML UDCUP PO PRN (03:08)
[2023-09-02] MEDS ORDERED: Calcium Carbonate 500 MG ChewTAB PO PRN (03:08)
[2023-09-02] MEDS ORDERED: Ondansetron PF 4 MG/2 ML Vial IVP PRN (03:08)
[2023-09-02] MEDS ORDERED: hydrALAZINE 20 MG/ML VIAL SLOW IVP PRN (03:11)
[2023-09-02] MEDS ORDERED: Bisacodyl 10 MG SUPP PR PRN (03:14)
[2023-09-02] MEDS ORDERED: Nitroglycerin 2% Ointment 1 INCH/1 GM Packet TOP SCH (03:30)
[2023-09-02] MEDS ORDERED: Amlodipine 5 MG TAB PO SCH ×2 (03:30→09:00)
[2023-09-02 04:00] VITALS: BMI 18.6
[2023-09-02 05:17] LABS: Anion Gap 13 mmol/L (10-20); BUN (Urea Nitrogen) 29 mg/dL (9.8-20.1); Calc. Creatinine Clearance 17 mL/min (70-130); Carbon Dioxide 21 mmol/L (23-31); Chloride 108 mmol/L (98-107); Estimated GFR 29; Glucose 82 mg/dL (83-110); Potassium 4.2 mmol/L (3.5-5.1); Sodium 138 mmol/L (136-145)
[2023-09-02] MEDS ORDERED: Furosemide 40 MG/4 ML VIAL SLOW IVP SCH ×2 (08:00→15:15)
[2023-09-02] MEDS: Polyethylene Glycol 3350 17 GM Packet PO SCH (08:59)
[2023-09-02] MEDS: Gabapentin 100 MG CAP PO SCH ×2 (09:00→20:33)
[2023-09-02] MEDS: Multivitamin w/Zinc Stress 1 TAB PO SCH (09:00)
[2023-09-02] MEDS ORDERED: Furosemide 20 MG TAB PO SCH (09:00)
[2023-09-02] MEDS: Senokot S 8.6-50 MG TAB PO SCH ×2 (09:01→20:32)
[2023-09-02] MEDS: Clopidogrel Bisulfate 75 MG TAB PO SCH (09:01)
[2023-09-02] MEDS: Calcium Carbonate 500 MG TAB PO SCH (09:02)
[2023-09-02] MEDS: Carbidopa/Levodopa 25-100 mg Tablet PO SCH ×4 (09:02→20:32)
[2023-09-02] MEDS ORDERED: Atorvastatin Calcium 10 MG TAB PO SCH (21:00)
[2023-09-03 05:09] LABS: Troponin I 0.032 ng/mL (< 0.028)
[2023-09-03] MEDS ORDERED: Aspirin 81 mg Enteric Coated Tablet PO SCH (09:00)
[2023-09-03] MEDS ORDERED: Amlodipine 10 MG TAB PO SCH (09:00)
[2023-09-03] MEDS ORDERED: Furosemide 40 MG/4 ML VIAL SLOW IVP SCH (09:00)
[2023-09-03] MEDS ORDERED: Furosemide 20 MG TAB PO SCH (09:00)
[2023-09-03] MEDS: Gabapentin 100 MG CAP PO SCH (09:21)
[2023-09-03] MEDS: Clopidogrel Bisulfate 75 MG TAB PO SCH (09:22)
[2023-09-03] MEDS: Multivitamin w/Zinc Stress 1 TAB PO SCH (09:22)
[2023-09-03] MEDS: Carbidopa/Levodopa 25-100 mg Tablet PO SCH ×2 (09:22→12:35)
[2023-09-03] MEDS: Senokot S 8.6-50 MG TAB PO SCH (09:22)
[2023-09-03] MEDS: Polyethylene Glycol 3350 17 GM Packet PO SCH (09:22)
[2023-09-03] MEDS: Calcium Carbonate 500 MG TAB PO SCH (12:35)
[2023-09-03 17:10] VITALS: BP 137/63; TEMP 98.5
== END 2023-09-03 17:10 | disposition home or self-care (01) ==
LOC: CSHTELE 09-02 02:26
PROVIDERS: ADMIT Student in an Organized Health Care Education/Training Program; ATTEND Internal Medicine
DX: I16.0 Hypertensive urgency (principal); I13.0 Hypertensive heart and chronic kidney disease with heart failure and stage 1 through stage 4 chronic kidney disease, or unspecified chronic kidney disease; I50.33 Acute on chronic diastolic (congestive) heart failure; N18.4 Chronic kidney disease, stage 4 (severe); D63.1 Anemia in chronic kidney disease; G20.A1 Parkinson's disease without dyskinesia, without mention of fluctuations; I25.10 Atherosclerotic heart disease of native coronary artery without angina pectoris; I73.9 Peripheral vascular disease, unspecified; E78.5 Hyperlipidemia, unspecified; R77.8 Other specified abnormalities of plasma proteins; K21.9 Gastro-esophageal reflux disease without esophagitis; Z79.82 Long term (current) use of aspirin; Z79.899 Other long term (current) drug therapy; Z91.041 Radiographic dye allergy status; Z88.2 Allergy status to sulfonamides; Z88.1 Allergy status to other antibiotic agents; Z88.8 Allergy status to other drugs, medicaments and biological substances; Z90.49 Acquired absence of other specified parts of digestive tract; Z90.710 Acquired absence of both cervix and uterus; Z87.891 Personal history of nicotine dependence; N18.9 Chronic kidney disease, unspecified; I50.9 Heart failure, unspecified
CPT/HCPCS: 51701; 71045; 74176; 80048; 80053; 81001; 83605; 83690; 83880; 84443; 84484 ×3; 85025; 93005; 96361; 96372 ×2; 96374 ×2; 96375; 96376 ×2; 99285; G0378 ×2; 36415; J1650; J1940; J2270; J2405

== ENCOUNTER 2023-09-26 17:36 | Inpatient (IN) | payer MEDICARE ==
[2023-09-26 19:14] LABS: #Eosinphils 0.2 10x3/uL (0.0-0.5); #Monocytes 0.7 10x3/uL (0.0-1.1); #Neutrophils 4.9 10x3/uL (1.5-8.4); %Basophils 0.4 % (0.0-2.0); %Eosinophils 2.7 % (0.0-6.0); %Lymphocytes 17.5 % (18.0-47.0); %Monocytes 9.3 % (0.0-10.0); %Neutrophils 69.8 % (40.0-75.0); Hematocrit 30.8 % (34.9-44.5); Mean Corpuscular HGB CONC 32.5 g/dL (32.0-36.0); Mean Corpuscular Hemoglobin 29.9 pg (27.0-33.0); Mean Corpuscular Volume 91.9 fl (81.6-98.3); Mean Platelet Volume 9.7 fl (7.4-10.4); Platelet Count 240 10x3/uL (150-450); RBC Distribution Width 14.7 % (11.5-14.5); Red Blood Cell (RBC) Count 3.35 10x6/uL (3.90-5.03)
[2023-09-26 19:29] LABS: ALT (SGPT) Less than 7 U/L (8-55); AST (SGOT) 14 U/L (5-34); Albumin 3.8 g/dL (3.4-4.8); Alkaline Phosphatase 63 U/L (40-110); Anion Gap 16 mmol/L (10-20); BUN (Urea Nitrogen) 42 mg/dL (9.8-20.1); Bilirubin, Total 0.4 mg/dL (0.2-1.2); Calc. Creatinine Clearance 0 mL/min (70-130); Calcium 8.8 mg/dL (7.8-10.44); Carbon Dioxide 23 mmol/L (23-31); Chloride 102 mmol/L (98-107); Estimated GFR 21; Globulin 2.4 g/dL (2.4-3.5); Glucose 102 mg/dL (83-110); Potassium 4.9 mmol/L (3.5-5.1); Protein, Total 6.2 g/dL (5.8-8.1); Sodium 136 mmol/L (136-145)
[2023-09-26 19:35] LABS: Troponin I 0.021 ng/mL (< 0.028)
[2023-09-26] MEDS ORDERED: Cyclobenzaprine 10 MG TAB ONE (19:55)
[2023-09-26 20:56] LABS: Bilirubin Neg (Negative); Blood, Urine 25 (Negative); Clarity Clear (Clear); Glucose, Urine (Dipstick) Normal (Negative); Ketone, Urine Negative (Negative); Leukocyte 500 (Negative); Nitrite Negative (Negative); Protein, Urine (Dipstick) 100 mg/dl (Neg-Trace); Specific Gravity, Urine 1.005 (1.005-1.030); Urobilinogen Normal mg/dL (Less than 2); pH, Urine 6.5 (5.0-9.0)
[2023-09-26] MEDS ORDERED: cefTRIAXone (ROCEPHIN) 1 GM VIAL ONE (21:09)
[2023-09-26] MEDS ORDERED: cloNIDine 0.1 MG TAB ONE (21:16)
[2023-09-26 21:19] LABS: Bacteria/HPF 1+ HPF (None Seen); CAUTI Indications for Culture Pelvic or flank pain; Squamous Epithelial 0-3 HPF (0-3)
[2023-09-26 21:20] LABS: Urine Culture Reflex Yes Yes
[2023-09-26] MEDS ORDERED: Guaifenesin DM 100-10/5 ML UDCUP PO PRN (22:08)
[2023-09-26] MEDS ORDERED: Ondansetron PF 4 MG/2 ML Vial IVP PRN (22:08)
[2023-09-26] MEDS ORDERED: Bisacodyl 5 MG TAB PO PRN (22:08)
[2023-09-26 23:42] VITALS: BMI 18.6
[2023-09-27] MEDS: Acetaminophen 325 MG TAB PO PRN ×3 (00:04→20:25)
[2023-09-27] MEDS: Calcium Carbonate 500 MG ChewTAB PO PRN (00:04)
[2023-09-27] MEDS ORDERED: hydrALAZINE 25 MG TAB PO SCH (01:00)
[2023-09-27] MEDS ORDERED: Nitroglycerin 2% Ointment 1 INCH/1 GM Packet TOP SCH (04:15)
[2023-09-27] MEDS: Amlodipine 10 MG TAB PO SCH (06:50)
[2023-09-27 07:41] LABS: #Eosinphils 0.2 10x3/uL (0.0-0.5); #Monocytes 0.6 10x3/uL (0.0-1.1); #Neutrophils 4.9 10x3/uL (1.5-8.4); %Basophils 0.6 % (0.0-2.0); %Eosinophils 2.7 % (0.0-6.0); %Lymphocytes 17.1 % (18.0-47.0); %Neutrophils 70.2 % (40.0-75.0); Hematocrit 32.2 % (34.9-44.5); Hemoglobin 10.4 g/dL (12.0-15.5); Mean Corpuscular HGB CONC 32.3 g/dL (32.0-36.0); Mean Corpuscular Hemoglobin 29.7 pg (27.0-33.0); Mean Platelet Volume 9.9 fl (7.4-10.4); Platelet Count 229 10x3/uL (150-450); RBC Distribution Width 14.9 % (11.5-14.5)
[2023-09-27 08:00] LABS: Anion Gap 16 mmol/L (10-20); BUN (Urea Nitrogen) 39 mg/dL (9.8-20.1); Calc. Creatinine Clearance 15 mL/min (70-130); Carbon Dioxide 25 mmol/L (23-31); Chloride 104 mmol/L (98-107); Estimated GFR 23; Glucose 81 mg/dL (83-110); Potassium 4.3 mmol/L (3.5-5.1); Sodium 141 mmol/L (136-145)
[2023-09-27] MEDS: Furosemide 20 MG TAB PO SCH (08:49)
[2023-09-27] MEDS: Clopidogrel Bisulfate 75 MG TAB PO SCH (08:49)
[2023-09-27] MEDS: Aspirin Chewable 81 MG TAB PO SCH (08:49)
[2023-09-27] MEDS: Multivitamin w/Zinc Stress 1 TAB PO SCH (08:51)
[2023-09-27] MEDS: Polyethylene Glycol 3350 17 GM Packet PO SCH (08:54)
[2023-09-27] MEDS: Senokot S 8.6-50 MG TAB PO SCH ×2 (08:54→20:24)
[2023-09-27] MEDS: Carbidopa/Levodopa 25-100 mg Tablet PO SCH ×4 (08:55→20:21)
[2023-09-27] MEDS: Dicyclomine 10 MG CAP PO SCH ×3 (08:56→20:22)
[2023-09-27] MEDS: hydrALAZINE 25 MG TAB PO SCH ×2 (09:09→20:23)
[2023-09-27 09:14] LABS: Free T4 (Free Thyroxine) 1.05 ng/dL (0.70-1.48)
[2023-09-27] MEDS: Atorvastatin Calcium 10 MG TAB PO SCH (20:20)
[2023-09-27] MEDS: cefTRIAXone\\ROCEPHIN 1 GM in Sodium Chloride 0.9% 100 ML IVPB SCH (20:21)
[2023-09-28] MEDS: Acetaminophen 325 MG TAB PO PRN (00:43)
[2023-09-28] MEDS: Calcium Carbonate 500 MG ChewTAB PO PRN (00:50)
[2023-09-28] MEDS ORDERED: traMADol HCl 50 MG TAB PO SCH (01:15)
[2023-09-28] MEDS ORDERED: Acetaminophen/Codeine 30-300mg Tablet PO SCH (01:15)
[2023-09-28] MEDS ORDERED: Morphine 2 MG/ML VIAL SLOW IVP SCH ×2 (04:45→16:30)
[2023-09-28] MEDS: Amlodipine 10 MG TAB PO SCH (05:47)
[2023-09-28 07:59] LABS: #Eosinphils 0.2 10x3/uL (0.0-0.5); #Monocytes 0.7 10x3/uL (0.0-1.1); #Neutrophils 5.5 10x3/uL (1.5-8.4); %Basophils 0.4 % (0.0-2.0); %Eosinophils 2.3 % (0.0-6.0); %Lymphocytes 16.3 % (18.0-47.0); %Monocytes 8.9 % (0.0-10.0); %Neutrophils 71.6 % (40.0-75.0); Hematocrit 32.8 % (34.9-44.5); Hemoglobin 10.7 g/dL (12.0-15.5); Mean Corpuscular HGB CONC 32.6 g/dL (32.0-36.0); Mean Corpuscular Hemoglobin 30.5 pg (27.0-33.0); Mean Corpuscular Volume 93.4 fl (81.6-98.3); Mean Platelet Volume 9.8 fl (7.4-10.4); Platelet Count 265 10x3/uL (150-450); RBC Distribution Width 14.8 % (11.5-14.5); Red Blood Cell (RBC) Count 3.51 10x6/uL (3.90-5.03); White Blood Cell (WBC) Count 7.7 10x3/uL (3.5-10.5)
[2023-09-28 08:16] LABS: Anion Gap 18 mmol/L (10-20); BUN (Urea Nitrogen) 38 mg/dL (9.8-20.1); Calc. Creatinine Clearance 14 mL/min (70-130); Calcium 9.4 mg/dL (7.8-10.44); Carbon Dioxide 22 mmol/L (23-31); Chloride 106 mmol/L (98-107); Estimated GFR 22; Glucose 92 mg/dL (83-110); Magnesium 2.2 mg/dL (1.6-2.6); Potassium 5.2 mmol/L (3.5-5.1); Sodium 141 mmol/L (136-145)
[2023-09-28] MEDS: Senokot S 8.6-50 MG TAB PO SCH ×2 (09:18→21:37)
[2023-09-28] MEDS: Multivitamin w/Zinc Stress 1 TAB PO SCH (09:20)
[2023-09-28] MEDS: Dicyclomine 10 MG CAP PO SCH (09:20)
[2023-09-28] MEDS: Aspirin Chewable 81 MG TAB PO SCH (09:21)
[2023-09-28] MEDS: Furosemide 20 MG TAB PO SCH (09:21)
[2023-09-28] MEDS: Clopidogrel Bisulfate 75 MG TAB PO SCH (09:21)
[2023-09-28] MEDS ORDERED: Sodium Chloride 0.9% 500 ML IV SCH (11:15)
[2023-09-28] MEDS ORDERED: Acetaminophen 500 MG TAB PO SCH ×2 (12:00→16:15)
[2023-09-28] MEDS ORDERED: traMADol HCl 50 MG TAB PO PRN (13:00)
[2023-09-28] MEDS: hydrALAZINE 25 MG TAB PO SCH ×2 (14:19→21:36)
[2023-09-28] MEDS: Carbidopa/Levodopa 25-100 mg Tablet PO SCH ×3 (14:19→21:35)
[2023-09-28] MEDS: Polyethylene Glycol 3350 17 GM Packet PO SCH (14:20)
[2023-09-28] MEDS: Acetaminophen 500 MG TAB PO SCH ×2 (16:13→21:38)
[2023-09-28 17:39] LABS: Anion Gap 15 mmol/L (10-20); BUN (Urea Nitrogen) 38 mg/dL (9.8-20.1); Calc. Creatinine Clearance 13 mL/min (70-130); Calcium 8.5 mg/dL (7.8-10.44); Carbon Dioxide 23 mmol/L (23-31); Chloride 103 mmol/L (98-107); Estimated GFR 21; Glucose 104 mg/dL (83-110); Potassium 4.3 mmol/L (3.5-5.1); Sodium 137 mmol/L (136-145)
[2023-09-28] MEDS: Atorvastatin Calcium 10 MG TAB PO SCH (21:36)
[2023-09-28] MEDS: cefTRIAXone\\ROCEPHIN 1 GM in Sodium Chloride 0.9% 100 ML IVPB SCH (21:36)
[2023-09-29] MEDS: Amlodipine 10 MG TAB PO SCH (05:40)
[2023-09-29 06:34] LABS: #Eosinphils 0.1 10x3/uL (0.0-0.5); #Monocytes 0.6 10x3/uL (0.0-1.1); #Neutrophils 5.1 10x3/uL (1.5-8.4); %Basophils 0.6 % (0.0-2.0); %Lymphocytes 17.2 % (18.0-47.0); %Monocytes 8.7 % (0.0-10.0); %Neutrophils 70.9 % (40.0-75.0); Hematocrit 31.9 % (34.9-44.5); Hemoglobin 10.2 g/dL (12.0-15.5); Mean Corpuscular Hemoglobin 29.8 pg (27.0-33.0); Mean Corpuscular Volume 93.3 fl (81.6-98.3); Mean Platelet Volume 9.7 fl (7.4-10.4); Platelet Count 262 10x3/uL (150-450); RBC Distribution Width 15.4 % (11.5-14.5); Red Blood Cell (RBC) Count 3.42 10x6/uL (3.90-5.03); White Blood Cell (WBC) Count 7.2 10x3/uL (3.5-10.5)
[2023-09-29 06:40] LABS: ALT (SGPT) Less than 7 U/L (8-55); AST (SGOT) 13 U/L (5-34); Albumin 3.5 g/dL (3.4-4.8); Alkaline Phosphatase 54 U/L (40-110); Anion Gap 15 mmol/L (10-20); BUN (Urea Nitrogen) 38 mg/dL (9.8-20.1); Bilirubin, Total 0.3 mg/dL (0.2-1.2); Calc. Creatinine Clearance 14 mL/min (70-130); Calcium 8.9 mg/dL (7.8-10.44); Carbon Dioxide 24 mmol/L (23-31); Chloride 106 mmol/L (98-107); Estimated GFR 22; Globulin 2.5 g/dL (2.4-3.5); Glucose 84 mg/dL (83-110); Magnesium 2.3 mg/dL (1.6-2.6); Potassium 4.7 mmol/L (3.5-5.1); Sodium 140 mmol/L (136-145)
[2023-09-29] MEDS: Carbidopa/Levodopa 25-100 mg Tablet PO SCH ×3 (09:39→13:38)
[2023-09-29] MEDS: hydrALAZINE 25 MG TAB PO SCH (09:40)
[2023-09-29] MEDS: Acetaminophen 500 MG TAB PO SCH ×2 (09:40→14:17)
[2023-09-29] MEDS: Clopidogrel Bisulfate 75 MG TAB PO SCH (09:40)
[2023-09-29] MEDS: Senokot S 8.6-50 MG TAB PO SCH (09:41)
[2023-09-29] MEDS: Aspirin Chewable 81 MG TAB PO SCH (09:41)
[2023-09-29] MEDS: Polyethylene Glycol 3350 17 GM Packet PO SCH (09:42)
[2023-09-29] MEDS: Multivitamin w/Zinc Stress 1 TAB PO SCH (09:42)
[2023-09-29] MEDS ORDERED: Nitrofurantoin Monohyd/M-Cryst 100 MG CAP PO SCH ×2 (16:15→21:00)
[2023-09-29 16:50] VITALS: BP 114/58; TEMP 98.4
[2023-09-29] MEDS ORDERED: Cyanocobalamin (Vitamin B-12) 1,000 MCG TAB PO SCH (21:00)
[2023-09-29] MEDS ORDERED: Multivit, Therapeutic 1 TAB PO SCH (21:00)
[2023-09-29] MEDS ORDERED: Saccharomyces boulardii 250 MG CAP PO SCH (21:00)
[2023-09-30] MEDS ORDERED: Nitrofurantoin Monohyd/M-Cryst 100 MG CAP PO SCH (09:00)
== END 2023-09-29 18:00 | disposition home health service (06) | DRG 689 ==
LOC: CSHERS 17:36 → CSHTELE 23:38
PROVIDERS: ADMIT Student in an Organized Health Care Education/Training Program; ATTEND Internal Medicine
DX: N39.0 Urinary tract infection, site not specified (principal); G93.41 Metabolic encephalopathy; I50.32 Chronic diastolic (congestive) heart failure; N18.4 Chronic kidney disease, stage 4 (severe); J98.11 Atelectasis; I13.0 Hypertensive heart and chronic kidney disease with heart failure and stage 1 through stage 4 chronic kidney disease, or unspecified chronic kidney disease; G20.A1 Parkinson's disease without dyskinesia, without mention of fluctuations; E78.5 Hyperlipidemia, unspecified; I25.10 Atherosclerotic heart disease of native coronary artery without angina pectoris; I73.9 Peripheral vascular disease, unspecified; K59.01 Slow transit constipation; I16.0 Hypertensive urgency; K21.9 Gastro-esophageal reflux disease without esophagitis; D63.1 Anemia in chronic kidney disease; E87.5 Hyperkalemia; D53.9 Nutritional anemia, unspecified; G89.29 Other chronic pain; Z88.2 Allergy status to sulfonamides; Z79.899 Other long term (current) drug therapy; Z79.82 Long term (current) use of aspirin; Z90.49 Acquired absence of other specified parts of digestive tract; Z90.710 Acquired absence of both cervix and uterus; Z98.890 Other specified postprocedural states; Z87.891 Personal history of nicotine dependence
CPT/HCPCS: 36415; 71045; 74176; 80048; 80053; 81001; 83735; 84439; 84443; 84484; 85025; 87077; 87086; 87186; 93005; 93923; 96365; J0696; J1650; J2272; J3490; J7030

== ENCOUNTER 2023-10-18 19:09 | Inpatient (IN) | payer MEDICARE ==
[2023-10-18] MEDS ORDERED: Lactated Ringer's 1,000 ML IV SCH (22:30)
[2023-10-18] MEDS ORDERED: Senokot S 8.6-50 MG TAB PO SCH (22:45)
[2023-10-18] MEDS ORDERED: Metoclopramide HCl 10 MG/2 ML VIAL IVP SCH (22:45)
[2023-10-18] MEDS ORDERED: Diclofenac 1% 50 GM TOPICAL GEL TP SCH (22:45)
[2023-10-18] MEDS ORDERED: Naloxone HCl 0.4 mg/ml Vial IV PRN (23:35)
[2023-10-18] MEDS: Sodium Chloride 0.45% 1,000 ML IV SCH (23:41)
[2023-10-18] MEDS: cloNIDine 0.1mg/24 Hour PATCH TD SCH (23:45)
[2023-10-19] MEDS ORDERED: niCARdipine 25 MG in Sodium Chloride 0.9% 250 ML 250 ML IVPB SCH (00:45)
[2023-10-19] MEDS: Sodium Chloride 0.45% 1,000 ML IV SCH (02:00)
[2023-10-19 04:21] LABS: #Eosinphils 0.1 10x3/uL (0.0-0.5); #Monocytes 0.8 10x3/uL (0.0-1.1); #Neutrophils 5.1 10x3/uL (1.5-8.4); %Basophils 0.5 % (0.0-2.0); %Eosinophils 1.5 % (0.0-6.0); %Lymphocytes 18.2 % (18.0-47.0); %Monocytes 10.7 % (0.0-10.0); %Neutrophils 68.8 % (40.0-75.0); Hematocrit 35.1 % (34.9-44.5); Hemoglobin 11.5 g/dL (12.0-15.5); Mean Corpuscular HGB CONC 32.8 g/dL (32.0-36.0); Mean Corpuscular Hemoglobin 30.7 pg (27.0-33.0); Mean Corpuscular Volume 93.6 fl (81.6-98.3); Mean Platelet Volume 9.9 fl (7.4-10.4); Platelet Count 189 10x3/uL (150-450); RBC Distribution Width 15.5 % (11.5-14.5); Red Blood Cell (RBC) Count 3.75 10x6/uL (3.90-5.03); White Blood Cell (WBC) Count 7.4 10x3/uL (3.5-10.5)
[2023-10-19 04:27] LABS: Anion Gap 17 mmol/L (10-20); BUN (Urea Nitrogen) 29 mg/dL (9.8-20.1); Calc. Creatinine Clearance 20 mL/min (70-130); Carbon Dioxide 17 mmol/L (23-31); Chloride 110 mmol/L (98-107); Estimated GFR 33; Glucose 72 mg/dL (83-110); Magnesium 2.2 mg/dL (1.6-2.6); Potassium 4.1 mmol/L (3.5-5.1); Sodium 140 mmol/L (136-145)
[2023-10-19] MEDS: Metoclopramide HCl 10 MG/2 ML VIAL IVP SCH ×2 (06:51→13:08)
[2023-10-19 06:54] LABS: Troponin I 0.045 ng/mL (< 0.028)
[2023-10-19] MEDS: Diclofenac 1% 50 GM TOPICAL GEL TP SCH ×4 (08:56→22:08)
[2023-10-19] MEDS: Cholecalciferol 1,000 UNITS (25 MCG) TAB PO SCH (08:57)
[2023-10-19] MEDS: Senokot S 8.6-50 MG TAB PO SCH ×2 (08:57→21:18)
[2023-10-19] MEDS: Polyethylene Glycol 3350 17 GM Packet PO SCH (08:57)
[2023-10-19] MEDS: Pantoprazole 40 MG VIAL IVP SCH (08:57)
[2023-10-19] MEDS: Carbidopa/Levodopa 25-100 mg Tablet PO SCH ×4 (08:58→22:00)
[2023-10-19] MEDS: Morphine ER 15 MG TAB PO SCH ×3 (08:58→21:20)
[2023-10-19] MEDS: Naloxegol 12.5 MG TAB PO SCH (08:58)
[2023-10-19] MEDS: Venlafaxine XR 37.5 MG CAP PO SCH (08:58)
[2023-10-19] MEDS ORDERED: Senokot S 8.6-50 MG TAB PO SCH (09:00)
[2023-10-19] MEDS ORDERED: Aspirin Chewable 81 MG TAB PO SCH (09:00)
[2023-10-19] MEDS ORDERED: Diclofenac 1% 50 GM TOPICAL GEL TP SCH ×2 (09:00)
[2023-10-19] MEDS: Clopidogrel Bisulfate 75 MG TAB PO SCH (09:25)
[2023-10-19] MEDS: cefTRIAXone\\ROCEPHIN 1 GM in Sodium Chloride 0.9% 100 ML IVPB SCH (13:08)
[2023-10-19] MEDS: Carvedilol 3.125 MG TAB PO SCH (16:30)
[2023-10-19] MEDS ORDERED: Carvedilol 12.5 MG TAB PO SCH (17:00)
[2023-10-19] MEDS: Atorvastatin Calcium 10 MG TAB PO SCH (22:00)
[2023-10-20] MEDS: Labetalol HCl 100 MG/20 ML VIAL SLOW IVP PRN (00:20)
[2023-10-20] MEDS: Sodium Chloride 0.45% 1,000 ML IV SCH (01:36)
[2023-10-20] MEDS ORDERED: Amlodipine 10 MG TAB PO SCH (03:45)
[2023-10-20] MEDS: Morphine ER 15 MG TAB PO SCH ×2 (08:19→22:29)
[2023-10-20] MEDS: Carvedilol 3.125 MG TAB PO SCH ×2 (08:22→16:53)
[2023-10-20] MEDS: Pantoprazole 40 MG VIAL IVP SCH (08:22)
[2023-10-20] MEDS: Aspirin 81 mg Enteric Coated Tablet PO SCH (08:22)
[2023-10-20] MEDS: Cholecalciferol 1,000 UNITS (25 MCG) TAB PO SCH (08:22)
[2023-10-20] MEDS: Diclofenac 1% 50 GM TOPICAL GEL TP SCH ×4 (08:25→22:26)
[2023-10-20] MEDS: Carbidopa/Levodopa 25-100 mg Tablet PO SCH ×4 (08:25→22:28)
[2023-10-20] MEDS: Polyethylene Glycol 3350 17 GM Packet PO SCH (08:33)
[2023-10-20] MEDS: Senokot S 8.6-50 MG TAB PO SCH ×2 (08:33→22:29)
[2023-10-20] MEDS: Naloxegol 12.5 MG TAB PO SCH (08:34)
[2023-10-20] MEDS: Pregabalin 25 MG CAP PO SCH ×2 (09:55→22:28)
[2023-10-20] MEDS: Venlafaxine XR 37.5 MG CAP PO SCH (10:23)
[2023-10-20] MEDS: cefTRIAXone\\ROCEPHIN 1 GM in Sodium Chloride 0.9% 100 ML IVPB SCH (13:14)
[2023-10-20] MEDS: Atorvastatin Calcium 10 MG TAB PO SCH (22:30)
[2023-10-21] MEDS: Pantoprazole 40 MG VIAL IVP SCH (09:21)
[2023-10-21] MEDS ORDERED: Sodium Chloride 0.9% 1,000 ML IV SCH (09:45)
[2023-10-21] MEDS ORDERED: Dextrose 50% Abboject 50 ML SYRINGE ONE (10:07)
[2023-10-21] MEDS ORDERED: Dextrose 50% Abboject 50 ML SYRINGE SLOW IVP SCH (12:00)
[2023-10-21] MEDS: Aspirin 81 mg Enteric Coated Tablet PO SCH (12:30)
[2023-10-21] MEDS: Morphine ER 15 MG TAB PO SCH (12:31)
[2023-10-21] MEDS: Pregabalin 25 MG CAP PO SCH (12:32)
[2023-10-21] MEDS: cefTRIAXone\\ROCEPHIN 1 GM in Sodium Chloride 0.9% 100 ML IVPB SCH (13:00)
[2023-10-21] MEDS: Diclofenac 1% 50 GM TOPICAL GEL TP SCH ×4 (13:05→21:22)
[2023-10-21] MEDS: Carbidopa/Levodopa 25-100 mg Tablet PO SCH ×4 (13:05→21:21)
[2023-10-21] MEDS: Labetalol HCl 100 MG/20 ML VIAL SLOW IVP PRN (14:35)
[2023-10-21] MEDS: Amlodipine 10 MG TAB PO SCH (16:04)
[2023-10-21] MEDS: Venlafaxine XR 37.5 MG CAP PO SCH (16:04)
[2023-10-21] MEDS: Naloxegol 12.5 MG TAB PO SCH (16:04)
[2023-10-21] MEDS: Carvedilol 3.125 MG TAB PO SCH ×2 (16:06)
[2023-10-21] MEDS: Polyethylene Glycol 3350 17 GM Packet PO SCH (16:17)
[2023-10-21] MEDS: Cholecalciferol 1,000 UNITS (25 MCG) TAB PO SCH (17:21)
[2023-10-21] MEDS: Senokot S 8.6-50 MG TAB PO SCH ×2 (17:21→21:28)
[2023-10-21] MEDS: Atorvastatin Calcium 10 MG TAB PO SCH (21:21)
[2023-10-22] MEDS ORDERED: Pregabalin 25 MG CAP PO SCH (09:00)
[2023-10-22] MEDS: Carvedilol 3.125 MG TAB PO SCH ×2 (09:33→16:46)
[2023-10-22] MEDS: Naloxegol 12.5 MG TAB PO SCH (09:33)
[2023-10-22] MEDS: Amlodipine 10 MG TAB PO SCH (09:33)
[2023-10-22] MEDS: Aspirin 81 mg Enteric Coated Tablet PO SCH (09:34)
[2023-10-22] MEDS: Cholecalciferol 1,000 UNITS (25 MCG) TAB PO SCH (09:34)
[2023-10-22] MEDS: Carbidopa/Levodopa 25-100 mg Tablet PO SCH ×4 (09:34→20:32)
[2023-10-22] MEDS: Diclofenac 1% 50 GM TOPICAL GEL TP SCH ×4 (09:35→20:33)
[2023-10-22] MEDS: Senokot S 8.6-50 MG TAB PO SCH ×2 (09:36→20:32)
[2023-10-22] MEDS: Pantoprazole 40 MG VIAL IVP SCH (09:36)
[2023-10-22] MEDS: Polyethylene Glycol 3350 17 GM Packet PO SCH (09:36)
[2023-10-22] MEDS: Venlafaxine XR 37.5 MG CAP PO SCH (09:37)
[2023-10-22] MEDS: Atorvastatin Calcium 10 MG TAB PO SCH (20:33)
[2023-10-23] MEDS: Labetalol HCl 100 MG/20 ML VIAL SLOW IVP PRN ×2 (04:02→11:04)
[2023-10-23] MEDS: Pantoprazole 40 MG VIAL IVP SCH (08:25)
[2023-10-23] MEDS: Aspirin 81 mg Enteric Coated Tablet PO SCH (08:26)
[2023-10-23] MEDS: Cholecalciferol 1,000 UNITS (25 MCG) TAB PO SCH (08:26)
[2023-10-23] MEDS: Amlodipine 10 MG TAB PO SCH (08:27)
[2023-10-23] MEDS: Senokot S 8.6-50 MG TAB PO SCH ×2 (08:27→21:14)
[2023-10-23] MEDS: Polyethylene Glycol 3350 17 GM Packet PO SCH (08:27)
[2023-10-23] MEDS: Carvedilol 3.125 MG TAB PO SCH ×2 (08:27→17:16)
[2023-10-23] MEDS: Venlafaxine XR 37.5 MG CAP PO SCH ×2 (08:48→08:49)
[2023-10-23] MEDS: Carbidopa/Levodopa 25-100 mg Tablet PO SCH ×4 (08:48→21:14)
[2023-10-23] MEDS: Naloxegol 12.5 MG TAB PO SCH (08:48)
[2023-10-23] MEDS: Diclofenac 1% 50 GM TOPICAL GEL TP SCH ×4 (08:50→21:20)
[2023-10-23] MEDS: Pregabalin 25 MG CAP PO SCH ×2 (09:33→21:20)
[2023-10-23] MEDS: Atorvastatin Calcium 10 MG TAB PO SCH (21:14)
[2023-10-24] MEDS: Labetalol HCl 100 MG/20 ML VIAL SLOW IVP PRN (04:27)
[2023-10-24] MEDS: Carvedilol 3.125 MG TAB PO SCH ×2 (08:29→17:01)
[2023-10-24] MEDS: Carbidopa/Levodopa 25-100 mg Tablet PO SCH ×4 (08:29→20:57)
[2023-10-24] MEDS: Amlodipine 10 MG TAB PO SCH (08:29)
[2023-10-24] MEDS: Cholecalciferol 1,000 UNITS (25 MCG) TAB PO SCH (08:29)
[2023-10-24] MEDS: Pantoprazole 40 MG VIAL IVP SCH (08:29)
[2023-10-24] MEDS: Naloxegol 12.5 MG TAB PO SCH (08:30)
[2023-10-24] MEDS: Diclofenac 1% 50 GM TOPICAL GEL TP SCH ×4 (08:31→21:33)
[2023-10-24] MEDS: Aspirin 81 mg Enteric Coated Tablet PO SCH (08:31)
[2023-10-24] MEDS: Polyethylene Glycol 3350 17 GM Packet PO SCH (08:32)
[2023-10-24] MEDS: Senokot S 8.6-50 MG TAB PO SCH ×2 (08:32→20:57)
[2023-10-24] MEDS: Venlafaxine XR 37.5 MG CAP PO SCH (08:33)
[2023-10-24] MEDS: Pregabalin 25 MG CAP PO SCH ×2 (08:49→20:57)
[2023-10-24] MEDS: Atorvastatin Calcium 10 MG TAB PO SCH (20:57)
[2023-10-24] MEDS: Morphine ER 15 MG TAB PO SCH (20:58)
[2023-10-25] MEDS ORDERED: Morphine ER 15 MG TAB PO SCH (10:00)
[2023-10-25 10:29] LABS: #Eosinphils 0.2 10x3/uL (0.0-0.5); #Monocytes 0.8 10x3/uL (0.0-1.1); #Neutrophils 4.9 10x3/uL (1.5-8.4); %Basophils 0.4 % (0.0-2.0); %Eosinophils 2.9 % (0.0-6.0); %Lymphocytes 14.4 % (18.0-47.0); %Monocytes 11.6 % (0.0-10.0); %Neutrophils 70.6 % (40.0-75.0); Hematocrit 30.6 % (34.9-44.5); Hemoglobin 10.1 g/dL (12.0-15.5); Mean Corpuscular Hemoglobin 30.7 pg (27.0-33.0); Mean Platelet Volume 9.7 fl (7.4-10.4); Platelet Count 269 10x3/uL (150-450); RBC Distribution Width 14.8 % (11.5-14.5); Red Blood Cell (RBC) Count 3.29 10x6/uL (3.90-5.03)
[2023-10-25] MEDS ORDERED: Amlodipine 5 MG TAB PO SCH (10:30)
[2023-10-25 10:44] LABS: Anion Gap 14 mmol/L (10-20); BUN (Urea Nitrogen) 22 mg/dL (9.8-20.1); Calc. Creatinine Clearance 21 mL/min (70-130); Calcium 8.6 mg/dL (7.8-10.44); Carbon Dioxide 21 mmol/L (23-31); Chloride 111 mmol/L (98-107); Estimated GFR 31; Glucose 82 mg/dL (83-110); Potassium 4.1 mmol/L (3.5-5.1); Sodium 142 mmol/L (136-145)
[2023-10-25] MEDS: Aspirin 81 mg Enteric Coated Tablet PO SCH (11:14)
[2023-10-25] MEDS: Clopidogrel Bisulfate 75 MG TAB PO SCH (11:14)
[2023-10-25] MEDS: Carbidopa/Levodopa 25-100 mg Tablet PO SCH ×4 (11:15→20:27)
[2023-10-25] MEDS: Carvedilol 3.125 MG TAB PO SCH ×2 (11:15→18:36)
[2023-10-25] MEDS: Cholecalciferol 1,000 UNITS (25 MCG) TAB PO SCH (11:15)
[2023-10-25] MEDS: Senokot S 8.6-50 MG TAB PO SCH ×2 (11:15→20:27)
[2023-10-25] MEDS: Naloxegol 12.5 MG TAB PO SCH (11:16)
[2023-10-25] MEDS: Polyethylene Glycol 3350 17 GM Packet PO SCH (11:17)
[2023-10-25] MEDS: AMPicillin 1 GM in Sodium Chloride 0.9% 100 ML IVPB SCH ×2 (11:20→22:04)
[2023-10-25] MEDS: Diclofenac 1% 50 GM TOPICAL GEL TP SCH ×4 (15:11→20:29)
[2023-10-25] MEDS: Pantoprazole 40 MG VIAL IVP SCH (15:22)
[2023-10-25] MEDS: Acetaminophen 500 MG TAB PO SCH ×2 (15:27→20:27)
[2023-10-25] MEDS: cloNIDine 0.1mg/24 Hour PATCH TD SCH (17:10)
[2023-10-25] MEDS: Atorvastatin Calcium 10 MG TAB PO SCH (20:27)
[2023-10-26 05:42] LABS: #Eosinphils 0.2 10x3/uL (0.0-0.5); #Monocytes 0.7 10x3/uL (0.0-1.1); #Neutrophils 3.5 10x3/uL (1.5-8.4); %Basophils 0.6 % (0.0-2.0); %Lymphocytes 18.5 % (18.0-47.0); %Monocytes 12.3 % (0.0-10.0); %Neutrophils 64.6 % (40.0-75.0); Hematocrit 29.8 % (34.9-44.5); Hemoglobin 9.7 g/dL (12.0-15.5); Mean Corpuscular HGB CONC 32.6 g/dL (32.0-36.0); Mean Corpuscular Volume 92.3 fl (81.6-98.3); Mean Platelet Volume 9.7 fl (7.4-10.4); Platelet Count 271 10x3/uL (150-450); RBC Distribution Width 14.7 % (11.5-14.5); Red Blood Cell (RBC) Count 3.23 10x6/uL (3.90-5.03); White Blood Cell (WBC) Count 5.5 10x3/uL (3.5-10.5)
[2023-10-26 05:52] LABS: Anion Gap 13 mmol/L (10-20); BUN (Urea Nitrogen) 21 mg/dL (9.8-20.1); Calc. Creatinine Clearance 21 mL/min (70-130); Calcium 8.5 mg/dL (7.8-10.44); Carbon Dioxide 21 mmol/L (23-31); Chloride 112 mmol/L (98-107); Estimated GFR 32; Glucose 95 mg/dL (83-110); Potassium 3.9 mmol/L (3.5-5.1); Sodium 142 mmol/L (136-145)
[2023-10-26] MEDS ORDERED: Morphine ER 15 MG TAB PO SCH (09:00)
[2023-10-26] MEDS: Amlodipine 5 MG TAB PO SCH (09:50)
[2023-10-26] MEDS: Carvedilol 3.125 MG TAB PO SCH ×2 (09:50→17:57)
[2023-10-26] MEDS: Clopidogrel Bisulfate 75 MG TAB PO SCH (09:50)
[2023-10-26] MEDS: Aspirin 81 mg Enteric Coated Tablet PO SCH (09:50)
[2023-10-26] MEDS: Naloxegol 12.5 MG TAB PO SCH (09:51)
[2023-10-26] MEDS: Senokot S 8.6-50 MG TAB PO SCH ×2 (09:51→23:43)
[2023-10-26] MEDS: Cholecalciferol 1,000 UNITS (25 MCG) TAB PO SCH (09:51)
[2023-10-26] MEDS: Carbidopa/Levodopa 25-100 mg Tablet PO SCH ×4 (09:52→23:46)
[2023-10-26] MEDS: Venlafaxine XR 37.5 MG CAP PO SCH (09:52)
[2023-10-26] MEDS: Acetaminophen 500 MG TAB PO SCH ×2 (09:53→17:58)
[2023-10-26] MEDS: Pantoprazole 40 MG VIAL IVP SCH (09:55)
[2023-10-26] MEDS: Pregabalin 25 MG CAP PO SCH (10:04)
[2023-10-26] MEDS: Polyethylene Glycol 3350 17 GM Packet PO SCH (10:18)
[2023-10-26] MEDS: Diclofenac 1% 50 GM TOPICAL GEL TP SCH ×4 (10:19→23:45)
[2023-10-26] MEDS: AMPicillin 1 GM in Sodium Chloride 0.9% 100 ML IVPB SCH ×2 (12:30→23:47)
[2023-10-26] MEDS: Atorvastatin Calcium 10 MG TAB PO SCH (23:44)
[2023-10-27] MEDS: Acetaminophen 500 MG TAB PO SCH ×4 (00:06→21:58)
[2023-10-27] MEDS: Labetalol HCl 100 MG/20 ML VIAL SLOW IVP PRN ×3 (00:09→22:07)
[2023-10-27 04:54] LABS: #Eosinphils 0.2 10x3/uL (0.0-0.5); #Monocytes 0.7 10x3/uL (0.0-1.1); %Basophils 0.5 % (0.0-2.0); %Eosinophils 3.2 % (0.0-6.0); %Monocytes 10.8 % (0.0-10.0); %Neutrophils 65.3 % (40.0-75.0); Hematocrit 32.1 % (34.9-44.5); Hemoglobin 10.8 g/dL (12.0-15.5); Mean Corpuscular HGB CONC 33.6 g/dL (32.0-36.0); Mean Corpuscular Hemoglobin 30.4 pg (27.0-33.0); Mean Corpuscular Volume 90.4 fl (81.6-98.3); Mean Platelet Volume 9.6 fl (7.4-10.4); Platelet Count 264 10x3/uL (150-450); RBC Distribution Width 14.5 % (11.5-14.5); Red Blood Cell (RBC) Count 3.55 10x6/uL (3.90-5.03); White Blood Cell (WBC) Count 6.2 10x3/uL (3.5-10.5)
[2023-10-27 05:02] LABS: Anion Gap 14 mmol/L (10-20); BUN (Urea Nitrogen) 19 mg/dL (9.8-20.1); Calc. Creatinine Clearance 23 mL/min (70-130); Calcium 8.5 mg/dL (7.8-10.44); Carbon Dioxide 20 mmol/L (23-31); Chloride 111 mmol/L (98-107); Estimated GFR 36; Glucose 84 mg/dL (83-110); Potassium 3.7 mmol/L (3.5-5.1); Sodium 141 mmol/L (136-145)
[2023-10-27] MEDS: Amlodipine 5 MG TAB PO SCH (07:11)
[2023-10-27] MEDS: Naloxegol 12.5 MG TAB PO SCH (07:12)
[2023-10-27] MEDS ORDERED: Hydrochlorothiazide 25 MG TAB PO SCH (10:30)
[2023-10-27] MEDS: Aspirin 81 mg Enteric Coated Tablet PO SCH (10:37)
[2023-10-27] MEDS: Clopidogrel Bisulfate 75 MG TAB PO SCH (10:38)
[2023-10-27] MEDS ORDERED: Amlodipine 5 MG TAB PO SCH (11:00)
[2023-10-27] MEDS ORDERED: Carvedilol 3.125 MG TAB PO SCH (11:00)
[2023-10-27] MEDS: Polyethylene Glycol 3350 17 GM Packet PO SCH (11:01)
[2023-10-27] MEDS: Pantoprazole 40 MG VIAL IVP SCH (11:01)
[2023-10-27] MEDS: Cholecalciferol 1,000 UNITS (25 MCG) TAB PO SCH (11:02)
[2023-10-27] MEDS: Senokot S 8.6-50 MG TAB PO SCH ×2 (11:03→21:58)
[2023-10-27] MEDS: AMPicillin 1 GM in Sodium Chloride 0.9% 100 ML IVPB SCH ×2 (11:04→23:00)
[2023-10-27] MEDS: Diclofenac 1% 50 GM TOPICAL GEL TP SCH ×4 (11:04→22:01)
[2023-10-27] MEDS: Carvedilol 3.125 MG TAB PO SCH (11:05)
[2023-10-27] MEDS: Pregabalin 25 MG CAP PO SCH (11:05)
[2023-10-27] MEDS: Carbidopa/Levodopa 25-100 mg Tablet PO SCH ×4 (11:08→22:01)
[2023-10-27] MEDS: Venlafaxine XR 37.5 MG CAP PO SCH (11:08)
[2023-10-27] MEDS: Carvedilol 6.25 MG TAB PO SCH (17:32)
[2023-10-27] MEDS: Atorvastatin Calcium 10 MG TAB PO SCH (21:58)
[2023-10-28] MEDS: Labetalol HCl 100 MG/20 ML VIAL SLOW IVP PRN ×2 (05:22→21:21)
[2023-10-28 05:36] LABS: #Eosinphils 0.3 10x3/uL (0.0-0.5); #Monocytes 0.7 10x3/uL (0.0-1.1); #Neutrophils 4.3 10x3/uL (1.5-8.4); %Basophils 0.6 % (0.0-2.0); %Eosinophils 3.9 % (0.0-6.0); %Lymphocytes 20.6 % (18.0-47.0); %Monocytes 10.7 % (0.0-10.0); %Neutrophils 63.9 % (40.0-75.0); Hematocrit 33.3 % (34.9-44.5); Mean Corpuscular Hemoglobin 30.2 pg (27.0-33.0); Mean Corpuscular Volume 91.5 fl (81.6-98.3); Mean Platelet Volume 9.5 fl (7.4-10.4); Platelet Count 315 10x3/uL (150-450); RBC Distribution Width 14.5 % (11.5-14.5); Red Blood Cell (RBC) Count 3.64 10x6/uL (3.90-5.03); White Blood Cell (WBC) Count 6.7 10x3/uL (3.5-10.5)
[2023-10-28 05:50] LABS: Anion Gap 15 mmol/L (10-20); BUN (Urea Nitrogen) 18 mg/dL (9.8-20.1); Calc. Creatinine Clearance 0 mL/min (70-130); Calcium 8.7 mg/dL (7.8-10.44); Carbon Dioxide 19 mmol/L (23-31); Chloride 111 mmol/L (98-107); Estimated GFR 32; Glucose 81 mg/dL (83-110); Potassium 3.9 mmol/L (3.5-5.1); Sodium 141 mmol/L (136-145)
[2023-10-28] MEDS ORDERED: Hydrochlorothiazide 25 MG TAB PO SCH (09:00)
[2023-10-28] MEDS: Clopidogrel Bisulfate 75 MG TAB PO SCH (09:08)
[2023-10-28] MEDS: Aspirin 81 mg Enteric Coated Tablet PO SCH (09:08)
[2023-10-28] MEDS: Amlodipine 10 MG TAB PO SCH (09:08)
[2023-10-28] MEDS: Carvedilol 6.25 MG TAB PO SCH ×2 (09:08→17:33)
[2023-10-28] MEDS: Senokot S 8.6-50 MG TAB PO SCH ×2 (09:09→21:18)
[2023-10-28] MEDS: Acetaminophen 500 MG TAB PO SCH ×3 (09:09→21:15)
[2023-10-28] MEDS: Cholecalciferol 1,000 UNITS (25 MCG) TAB PO SCH (09:09)
[2023-10-28] MEDS: Polyethylene Glycol 3350 17 GM Packet PO SCH (09:11)
[2023-10-28] MEDS: Venlafaxine XR 37.5 MG CAP PO SCH (09:11)
[2023-10-28] MEDS: Diclofenac 1% 50 GM TOPICAL GEL TP SCH ×4 (09:11→21:18)
[2023-10-28] MEDS: Pantoprazole 40 MG VIAL IVP SCH (09:13)
[2023-10-28] MEDS: AMPicillin 1 GM in Sodium Chloride 0.9% 100 ML IVPB SCH (10:37)
[2023-10-28] MEDS: Carbidopa/Levodopa 25-100 mg Tablet PO SCH ×4 (10:38→21:16)
[2023-10-28] MEDS ORDERED: Doxycycline 100 MG CAP PO SCH (12:30)
[2023-10-28] MEDS: Atorvastatin Calcium 10 MG TAB PO SCH (21:15)
[2023-10-28] MEDS: Doxycycline 100 MG CAP PO SCH (21:17)
[2023-10-29] MEDS: Labetalol HCl 100 MG/20 ML VIAL SLOW IVP PRN (05:13)
[2023-10-29 05:16] LABS: #Eosinphils 0.3 10x3/uL (0.0-0.5); #Monocytes 0.7 10x3/uL (0.0-1.1); #Neutrophils 4.2 10x3/uL (1.5-8.4); %Basophils 0.5 % (0.0-2.0); %Eosinophils 3.9 % (0.0-6.0); %Lymphocytes 20.2 % (18.0-47.0); %Monocytes 10.5 % (0.0-10.0); %Neutrophils 64.7 % (40.0-75.0); Hematocrit 30.2 % (34.9-44.5); Hemoglobin 9.9 g/dL (12.0-15.5); Mean Corpuscular HGB CONC 32.8 g/dL (32.0-36.0); Mean Corpuscular Volume 91.5 fl (81.6-98.3); Mean Platelet Volume 9.4 fl (7.4-10.4); Platelet Count 303 10x3/uL (150-450); RBC Distribution Width 14.8 % (11.5-14.5); White Blood Cell (WBC) Count 6.5 10x3/uL (3.5-10.5)
[2023-10-29 05:26] LABS: Anion Gap 15 mmol/L (10-20); BUN (Urea Nitrogen) 23 mg/dL (9.8-20.1); Calc. Creatinine Clearance 20 mL/min (70-130); Calcium 8.4 mg/dL (7.8-10.44); Carbon Dioxide 19 mmol/L (23-31); Chloride 113 mmol/L (98-107); Estimated GFR 30; Glucose 83 mg/dL (83-110); Sodium 143 mmol/L (136-145)
[2023-10-29] MEDS ORDERED: Hydrochlorothiazide 25 MG TAB PO SCH (09:00)
[2023-10-29] MEDS: Aspirin 81 mg Enteric Coated Tablet PO SCH (09:20)
[2023-10-29] MEDS: Clopidogrel Bisulfate 75 MG TAB PO SCH (09:21)
[2023-10-29] MEDS: Polyethylene Glycol 3350 17 GM Packet PO SCH (09:21)
[2023-10-29] MEDS: Carbidopa/Levodopa 25-100 mg Tablet PO SCH ×4 (09:22→20:12)
[2023-10-29] MEDS: Doxycycline 100 MG CAP PO SCH (09:22)
[2023-10-29] MEDS: Senokot S 8.6-50 MG TAB PO SCH ×2 (09:22→20:13)
[2023-10-29] MEDS: Venlafaxine XR 37.5 MG CAP PO SCH (09:23)
[2023-10-29] MEDS: Carvedilol 6.25 MG TAB PO SCH ×2 (09:24→16:01)
[2023-10-29] MEDS: Cholecalciferol 1,000 UNITS (25 MCG) TAB PO SCH (09:25)
[2023-10-29] MEDS: Amlodipine 10 MG TAB PO SCH (09:25)
[2023-10-29] MEDS: Acetaminophen 500 MG TAB PO SCH ×3 (09:26→20:11)
[2023-10-29] MEDS: Diclofenac 1% 50 GM TOPICAL GEL TP SCH ×4 (09:26→20:12)
[2023-10-29] MEDS: Atorvastatin Calcium 10 MG TAB PO SCH (20:12)
[2023-10-29] MEDS: AMOXicillin 250 MG CAP PO SCH (21:36)
[2023-10-30 03:43] LABS: Anion Gap 14 mmol/L (10-20); BUN (Urea Nitrogen) 21 mg/dL (9.8-20.1); Calc. Creatinine Clearance 20 mL/min (70-130); Calcium 8.8 mg/dL (7.8-10.44); Carbon Dioxide 17 mmol/L (23-31); Chloride 112 mmol/L (98-107); Estimated GFR 28; Glucose 86 mg/dL (83-110); Potassium 3.2 mmol/L (3.5-5.1); Sodium 140 mmol/L (136-145)
[2023-10-30] MEDS: Labetalol HCl 100 MG/20 ML VIAL SLOW IVP PRN (03:59)
[2023-10-30] MEDS ORDERED: Hydrocodone-Acetamin 15 ML UDCUP PO SCH (04:15)
[2023-10-30] MEDS: AMOXicillin 250 MG CAP PO SCH ×2 (06:02→17:40)
[2023-10-30] MEDS ORDERED: hydrALAZINE 25 MG TAB PO SCH (09:00)
[2023-10-30] MEDS: Clopidogrel Bisulfate 75 MG TAB PO SCH (10:04)
[2023-10-30] MEDS: Senokot S 8.6-50 MG TAB PO SCH ×2 (10:04→20:15)
[2023-10-30] MEDS: Acetaminophen 500 MG TAB PO SCH ×3 (10:07→20:13)
[2023-10-30] MEDS: Venlafaxine XR 37.5 MG CAP PO SCH (10:08)
[2023-10-30] MEDS: Cholecalciferol 1,000 UNITS (25 MCG) TAB PO SCH (10:08)
[2023-10-30] MEDS: Carvedilol 6.25 MG TAB PO SCH ×2 (10:08→17:40)
[2023-10-30] MEDS: Carbidopa/Levodopa 25-100 mg Tablet PO SCH ×4 (10:08→20:13)
[2023-10-30] MEDS: hydrALAZINE 25 MG TAB PO SCH ×3 (10:08→20:14)
[2023-10-30] MEDS: Amlodipine 10 MG TAB PO SCH (10:08)
[2023-10-30] MEDS: Polyethylene Glycol 3350 17 GM Packet PO SCH (10:09)
[2023-10-30] MEDS: Aspirin 81 mg Enteric Coated Tablet PO SCH (10:09)
[2023-10-30] MEDS: Diclofenac 1% 50 GM TOPICAL GEL TP SCH ×4 (10:25→20:14)
[2023-10-30] MEDS ORDERED: Electrolyte Replacement Protocol 1 EACH FS PRN (16:48)
[2023-10-30] MEDS ORDERED: Potassium Chloride 20 MEQ TAB PO SCH (17:30)
[2023-10-30] MEDS: Atorvastatin Calcium 10 MG TAB PO SCH (20:13)
[2023-10-30] MEDS: Heparin 5,000 UNITS/ML VIAL SC SCH (20:22)
[2023-10-31 04:46] LABS: Anion Gap 15 mmol/L (10-20); BUN (Urea Nitrogen) 25 mg/dL (9.8-20.1); Calc. Creatinine Clearance 20 mL/min (70-130); Calcium 8.6 mg/dL (7.8-10.44); Carbon Dioxide 15 mmol/L (23-31); Chloride 114 mmol/L (98-107); Estimated GFR 28; Glucose 88 mg/dL (83-110); Magnesium 1.8 mg/dL (1.6-2.6); Potassium 4.3 mmol/L (3.5-5.1); Sodium 140 mmol/L (136-145)
[2023-10-31] MEDS: AMOXicillin 250 MG CAP PO SCH ×2 (05:33→18:34)
[2023-10-31] MEDS: Labetalol HCl 100 MG/20 ML VIAL SLOW IVP PRN (05:47)
[2023-10-31] MEDS: Magnesium 2 GM/50 ML(in water) 2 GM in Premix 1 BAG IVPB SCH ×2 (09:03→10:36)
[2023-10-31] MEDS: Polyethylene Glycol 3350 17 GM Packet PO SCH (09:04)
[2023-10-31] MEDS: Venlafaxine XR 37.5 MG CAP PO SCH (09:05)
[2023-10-31] MEDS: Cholecalciferol 1,000 UNITS (25 MCG) TAB PO SCH (09:06)
[2023-10-31] MEDS: Acetaminophen 500 MG TAB PO SCH ×3 (09:08→21:43)
[2023-10-31] MEDS: Senokot S 8.6-50 MG TAB PO SCH ×2 (09:10→21:43)
[2023-10-31] MEDS: Amlodipine 10 MG TAB PO SCH (09:10)
[2023-10-31] MEDS: Carbidopa/Levodopa 25-100 mg Tablet PO SCH ×4 (09:11→21:43)
[2023-10-31] MEDS: Carvedilol 6.25 MG TAB PO SCH ×2 (09:11→16:57)
[2023-10-31] MEDS: Aspirin 81 mg Enteric Coated Tablet PO SCH (09:14)
[2023-10-31] MEDS: Diclofenac 1% 50 GM TOPICAL GEL TP SCH ×4 (09:15→21:44)
[2023-10-31] MEDS: Clopidogrel Bisulfate 75 MG TAB PO SCH (09:15)
[2023-10-31] MEDS: hydrALAZINE 25 MG TAB PO SCH ×3 (09:55→21:44)
[2023-10-31] MEDS ORDERED: Spironolactone 25 MG TAB PO SCH (10:00)
[2023-10-31] MEDS ORDERED: Magnesium Oxide 400 MG TAB PO SCH (11:15)
[2023-10-31] MEDS: Heparin 5,000 UNITS/ML VIAL SC SCH ×2 (11:31→21:42)
[2023-10-31] MEDS: Sodium Bicarbonate Tab 325 MG TAB PO SCH ×2 (15:01→21:42)
[2023-10-31] MEDS ORDERED: fentaNYL 50 mcg/mL 1 mL Vial SLOW IVP SCH (15:15)
[2023-10-31] MEDS: Atorvastatin Calcium 10 MG TAB PO SCH (21:43)
[2023-11-01 04:20] LABS: #Eosinphils 0.3 10x3/uL (0.0-0.5); #Monocytes 0.8 10x3/uL (0.0-1.1); #Neutrophils 3.9 10x3/uL (1.5-8.4); %Basophils 0.6 % (0.0-2.0); %Eosinophils 4.8 % (0.0-6.0); %Lymphocytes 19.9 % (18.0-47.0); %Monocytes 12.4 % (0.0-10.0); Hematocrit 29.1 % (34.9-44.5); Hemoglobin 9.6 g/dL (12.0-15.5); Mean Corpuscular Hemoglobin 30.2 pg (27.0-33.0); Mean Corpuscular Volume 91.5 fl (81.6-98.3); Mean Platelet Volume 9.2 fl (7.4-10.4); Platelet Count 287 10x3/uL (150-450); RBC Distribution Width 15.5 % (11.5-14.5); Red Blood Cell (RBC) Count 3.18 10x6/uL (3.90-5.03); White Blood Cell (WBC) Count 6.3 10x3/uL (3.5-10.5)
[2023-11-01 04:35] LABS: Anion Gap 15 mmol/L (10-20); BUN (Urea Nitrogen) 25 mg/dL (9.8-20.1); Calc. Creatinine Clearance 18 mL/min (70-130); Calcium 8.3 mg/dL (7.8-10.44); Carbon Dioxide 16 mmol/L (23-31); Chloride 111 mmol/L (98-107); Estimated GFR 26; Glucose 86 mg/dL (83-110); Sodium 138 mmol/L (136-145)
[2023-11-01] MEDS ORDERED: traMADol HCl 50 MG TAB PO SCH (05:00)
[2023-11-01] MEDS: AMOXicillin 250 MG CAP PO SCH ×2 (05:16→18:25)
[2023-11-01] MEDS: Carvedilol 6.25 MG TAB PO SCH ×2 (12:22→16:33)
[2023-11-01] MEDS: Spironolactone 25 MG TAB PO SCH (12:24)
[2023-11-01] MEDS: Carbidopa/Levodopa 25-100 mg Tablet PO SCH ×4 (12:25→22:08)
[2023-11-01] MEDS: Aspirin 81 mg Enteric Coated Tablet PO SCH (12:25)
[2023-11-01] MEDS: Amlodipine 10 MG TAB PO SCH (12:25)
[2023-11-01] MEDS: Cholecalciferol 1,000 UNITS (25 MCG) TAB PO SCH (12:25)
[2023-11-01] MEDS: Acetaminophen 500 MG TAB PO SCH ×3 (12:25→22:07)
[2023-11-01] MEDS: Clopidogrel Bisulfate 75 MG TAB PO SCH (12:25)
[2023-11-01] MEDS: Diclofenac 1% 50 GM TOPICAL GEL TP SCH ×4 (12:26→22:09)
[2023-11-01] MEDS: Polyethylene Glycol 3350 17 GM Packet PO SCH (12:27)
[2023-11-01] MEDS: Sodium Bicarbonate Tab 325 MG TAB PO SCH ×3 (12:27→22:09)
[2023-11-01] MEDS: Senokot S 8.6-50 MG TAB PO SCH ×2 (12:27→22:07)
[2023-11-01] MEDS: Heparin 5,000 UNITS/ML VIAL SC SCH ×2 (12:27→22:06)
[2023-11-01] MEDS: hydrALAZINE 25 MG TAB PO SCH ×3 (12:27→22:06)
[2023-11-01] MEDS: Venlafaxine XR 37.5 MG CAP PO SCH (12:27)
[2023-11-01] MEDS: Atorvastatin Calcium 10 MG TAB PO SCH (22:07)
[2023-11-02] MEDS: AMOXicillin 250 MG CAP PO SCH ×2 (06:32→17:43)
[2023-11-02] MEDS: Sodium Bicarbonate Tab 325 MG TAB PO SCH ×3 (09:53→21:29)
[2023-11-02] MEDS: Senokot S 8.6-50 MG TAB PO SCH ×2 (09:53→21:30)
[2023-11-02] MEDS: Aspirin 81 mg Enteric Coated Tablet PO SCH (09:53)
[2023-11-02] MEDS: Cholecalciferol 1,000 UNITS (25 MCG) TAB PO SCH (09:53)
[2023-11-02] MEDS: Acetaminophen 500 MG TAB PO SCH ×3 (09:54→21:29)
[2023-11-02] MEDS: Spironolactone 25 MG TAB PO SCH (09:54)
[2023-11-02] MEDS: Clopidogrel Bisulfate 75 MG TAB PO SCH (09:54)
[2023-11-02] MEDS: Heparin 5,000 UNITS/ML VIAL SC SCH ×2 (09:54→21:31)
[2023-11-02] MEDS: Amlodipine 10 MG TAB PO SCH (09:54)
[2023-11-02] MEDS: Carvedilol 6.25 MG TAB PO SCH (09:54)
[2023-11-02] MEDS: Carbidopa/Levodopa 25-100 mg Tablet PO SCH ×4 (09:55→21:30)
[2023-11-02] MEDS: hydrALAZINE 25 MG TAB PO SCH ×3 (09:55→21:30)
[2023-11-02] MEDS: Venlafaxine XR 37.5 MG CAP PO SCH (09:56)
[2023-11-02] MEDS: Oxymetazoline HCl 0.05% ( 15 ML ) NASAL PRN ×2 (10:01→21:51)
[2023-11-02] MEDS: Polyethylene Glycol 3350 17 GM Packet PO SCH (10:21)
[2023-11-02] MEDS: Diclofenac 1% 50 GM TOPICAL GEL TP SCH ×3 (10:21→17:43)
[2023-11-02] MEDS: Carvedilol 12.5 MG TAB PO SCH (17:45)
[2023-11-02] MEDS: Atorvastatin Calcium 10 MG TAB PO SCH (21:30)
[2023-11-02] MEDS ORDERED: Guaifenesin DM 100-10/5 ML UDCUP PO PRN (23:28)
[2023-11-03] MEDS: Diclofenac 1% 50 GM TOPICAL GEL TP SCH ×5 (01:55→22:15)
[2023-11-03] MEDS: AMOXicillin 250 MG CAP PO SCH ×2 (06:21→17:54)
[2023-11-03] MEDS: Polyethylene Glycol 3350 17 GM Packet PO SCH (07:56)
[2023-11-03] MEDS: Heparin 5,000 UNITS/ML VIAL SC SCH ×2 (07:56→21:48)
[2023-11-03] MEDS: Carbidopa/Levodopa 25-100 mg Tablet PO SCH ×4 (07:57→22:26)
[2023-11-03] MEDS: Senokot S 8.6-50 MG TAB PO SCH ×2 (07:58→22:15)
[2023-11-03] MEDS: Cholecalciferol 1,000 UNITS (25 MCG) TAB PO SCH (07:58)
[2023-11-03] MEDS: Acetaminophen 500 MG TAB PO SCH ×3 (07:58→21:45)
[2023-11-03] MEDS: hydrALAZINE 25 MG TAB PO SCH ×3 (07:58→21:46)
[2023-11-03] MEDS: Clopidogrel Bisulfate 75 MG TAB PO SCH (07:58)
[2023-11-03] MEDS: Carvedilol 12.5 MG TAB PO SCH ×2 (07:58→17:54)
[2023-11-03] MEDS: Spironolactone 25 MG TAB PO SCH (07:58)
[2023-11-03] MEDS: Aspirin 81 mg Enteric Coated Tablet PO SCH (07:59)
[2023-11-03] MEDS: guaiFENesin ER 600 MG TAB PO SCH ×2 (07:59→21:46)
[2023-11-03] MEDS: Sodium Bicarbonate Tab 325 MG TAB PO SCH ×3 (07:59→21:52)
[2023-11-03] MEDS: Amlodipine 10 MG TAB PO SCH (07:59)
[2023-11-03] MEDS: Venlafaxine XR 37.5 MG CAP PO SCH (08:12)
[2023-11-03] MEDS ORDERED: hydrALAZINE 25 MG TAB PO SCH (09:15)
[2023-11-03] MEDS: Atorvastatin Calcium 10 MG TAB PO SCH (21:46)
[2023-11-03] MEDS: Melatonin 3 MG TAB PO PRN (21:51)
[2023-11-04 03:39] LABS: #Basophils 0.1 10x3/uL (0.0-0.2); #Eosinphils 0.1 10x3/uL (0.0-0.5); #Monocytes 0.6 10x3/uL (0.0-1.1); %Eosinophils 2.2 % (0.0-6.0); %Lymphocytes 24.6 % (18.0-47.0); %Monocytes 11.9 % (0.0-10.0); %Neutrophils 59.9 % (40.0-75.0); Hematocrit 31.9 % (34.9-44.5); Hemoglobin 10.1 g/dL (12.0-15.5); Mean Corpuscular HGB CONC 31.7 g/dL (32.0-36.0); Mean Corpuscular Hemoglobin 30.5 pg (27.0-33.0); Mean Corpuscular Volume 96.4 fl (81.6-98.3); Mean Platelet Volume 9.3 fl (7.4-10.4); Platelet Count 288 10x3/uL (150-450); RBC Distribution Width 16.3 % (11.5-14.5); Red Blood Cell (RBC) Count 3.31 10x6/uL (3.90-5.03)
[2023-11-04 04:17] LABS: Anion Gap 15 mmol/L (10-20); BUN (Urea Nitrogen) 26 mg/dL (9.8-20.1); Calc. Creatinine Clearance 19 mL/min (70-130); Calcium 8.4 mg/dL (7.8-10.44); Carbon Dioxide 15 mmol/L (23-31); Chloride 110 mmol/L (98-107); Estimated GFR 27; Glucose 80 mg/dL (83-110); Potassium 3.8 mmol/L (3.5-5.1); Sodium 136 mmol/L (136-145)
[2023-11-04] MEDS: Sodium Bicarbonate Tab 325 MG TAB PO SCH ×3 (08:58→21:40)
[2023-11-04] MEDS: hydrALAZINE 25 MG TAB PO SCH ×3 (08:59→22:29)
[2023-11-04] MEDS: guaiFENesin ER 600 MG TAB PO SCH ×2 (08:59→22:29)
[2023-11-04] MEDS: Acetaminophen 500 MG TAB PO SCH ×3 (08:59→21:37)
[2023-11-04] MEDS: Clopidogrel Bisulfate 75 MG TAB PO SCH (08:59)
[2023-11-04] MEDS: Senokot S 8.6-50 MG TAB PO SCH ×2 (08:59→21:38)
[2023-11-04] MEDS: Aspirin 81 mg Enteric Coated Tablet PO SCH (08:59)
[2023-11-04] MEDS: Venlafaxine XR 37.5 MG CAP PO SCH (09:00)
[2023-11-04] MEDS: Carvedilol 12.5 MG TAB PO SCH ×2 (09:00→17:40)
[2023-11-04] MEDS: Amlodipine 10 MG TAB PO SCH (09:00)
[2023-11-04] MEDS: Polyethylene Glycol 3350 17 GM Packet PO SCH (09:00)
[2023-11-04] MEDS: Cholecalciferol 1,000 UNITS (25 MCG) TAB PO SCH (09:00)
[2023-11-04] MEDS: Spironolactone 25 MG TAB PO SCH (09:01)
[2023-11-04] MEDS: Carbidopa/Levodopa 25-100 mg Tablet PO SCH ×4 (09:02→21:39)
[2023-11-04] MEDS: Heparin 5,000 UNITS/ML VIAL SC SCH ×2 (09:05→22:32)
[2023-11-04] MEDS: Diclofenac 1% 50 GM TOPICAL GEL TP SCH ×4 (09:49→22:32)
[2023-11-04] MEDS: Melatonin 3 MG TAB PO PRN (21:38)
[2023-11-04] MEDS: Atorvastatin Calcium 10 MG TAB PO SCH (21:39)
[2023-11-05 03:36] LABS: #Eosinphils 0.1 10x3/uL (0.0-0.5); #Monocytes 0.6 10x3/uL (0.0-1.1); #Neutrophils 3.7 10x3/uL (1.5-8.4); %Basophils 0.5 % (0.0-2.0); %Eosinophils 1.7 % (0.0-6.0); %Monocytes 9.6 % (0.0-10.0); %Neutrophils 62.9 % (40.0-75.0); Hematocrit 30.6 % (34.9-44.5); Mean Corpuscular HGB CONC 32.7 g/dL (32.0-36.0); Mean Corpuscular Hemoglobin 30.7 pg (27.0-33.0); Mean Corpuscular Volume 93.9 fl (81.6-98.3); Mean Platelet Volume 9.1 fl (7.4-10.4); Platelet Count 322 10x3/uL (150-450); RBC Distribution Width 16.2 % (11.5-14.5); Red Blood Cell (RBC) Count 3.26 10x6/uL (3.90-5.03); White Blood Cell (WBC) Count 5.8 10x3/uL (3.5-10.5)
[2023-11-05 04:17] LABS: Anion Gap 15 mmol/L (10-20); BUN (Urea Nitrogen) 31 mg/dL (9.8-20.1); Calc. Creatinine Clearance 17 mL/min (70-130); Calcium 8.4 mg/dL (7.8-10.44); Carbon Dioxide 15 mmol/L (23-31); Chloride 110 mmol/L (98-107); Estimated GFR 23; Glucose 85 mg/dL (83-110); Sodium 136 mmol/L (136-145)
[2023-11-05] MEDS: Sodium Bicarbonate Tab 325 MG TAB PO SCH ×3 (09:06→23:34)
[2023-11-05] MEDS: Senokot S 8.6-50 MG TAB PO SCH ×2 (09:06→23:34)
[2023-11-05] MEDS: Aspirin 81 mg Enteric Coated Tablet PO SCH (09:07)
[2023-11-05] MEDS: Amlodipine 10 MG TAB PO SCH (09:07)
[2023-11-05] MEDS: Cholecalciferol 1,000 UNITS (25 MCG) TAB PO SCH (09:07)
[2023-11-05] MEDS: guaiFENesin ER 600 MG TAB PO SCH ×2 (09:07→23:34)
[2023-11-05] MEDS: hydrALAZINE 25 MG TAB PO SCH ×3 (09:08→23:35)
[2023-11-05] MEDS: Clopidogrel Bisulfate 75 MG TAB PO SCH (09:08)
[2023-11-05] MEDS: Carvedilol 12.5 MG TAB PO SCH ×2 (09:08→17:40)
[2023-11-05] MEDS: Acetaminophen 500 MG TAB PO SCH ×3 (09:09→23:33)
[2023-11-05] MEDS: Polyethylene Glycol 3350 17 GM Packet PO SCH (09:10)
[2023-11-05] MEDS: Heparin 5,000 UNITS/ML VIAL SC SCH ×2 (09:10→23:32)
[2023-11-05] MEDS: Diclofenac 1% 50 GM TOPICAL GEL TP SCH ×3 (09:16→17:37)
[2023-11-05] MEDS: Venlafaxine XR 37.5 MG CAP PO SCH (09:16)
[2023-11-05] MEDS: Carbidopa/Levodopa 25-100 mg Tablet PO SCH ×4 (09:16→23:35)
[2023-11-05] MEDS: Atorvastatin Calcium 10 MG TAB PO SCH (23:34)
[2023-11-05] MEDS: Melatonin 3 MG TAB PO PRN (23:58)
[2023-11-06] MEDS: Diclofenac 1% 50 GM TOPICAL GEL TP SCH ×5 (00:18→21:08)
[2023-11-06] MEDS: hydrALAZINE 25 MG TAB PO SCH ×4 (00:19→21:08)
[2023-11-06] MEDS: Sodium Bicarbonate Tab 325 MG TAB PO SCH ×4 (00:20→20:44)
[2023-11-06 05:13] LABS: Anion Gap 17 mmol/L (10-20); BUN (Urea Nitrogen) 32 mg/dL (9.8-20.1); Calc. Creatinine Clearance 16 mL/min (70-130); Calcium 8.3 mg/dL (7.8-10.44); Carbon Dioxide 14 mmol/L (23-31); Chloride 110 mmol/L (98-107); Estimated GFR 22; Glucose 82 mg/dL (83-110); Potassium 3.7 mmol/L (3.5-5.1); Sodium 137 mmol/L (136-145)
[2023-11-06] MEDS: Sodium Chloride 0.9% 1,000 ML IV SCH ×2 (06:23→19:09)
[2023-11-06 08:07] VITALS: BMI 21.2
[2023-11-06] MEDS: Carvedilol 12.5 MG TAB PO SCH ×2 (10:08→17:21)
[2023-11-06] MEDS: guaiFENesin ER 600 MG TAB PO SCH ×2 (10:08→20:43)
[2023-11-06] MEDS: Amlodipine 10 MG TAB PO SCH (10:08)
[2023-11-06] MEDS: Aspirin 81 mg Enteric Coated Tablet PO SCH (10:08)
[2023-11-06] MEDS: Acetaminophen 500 MG TAB PO SCH ×3 (10:09→21:07)
[2023-11-06] MEDS: Cholecalciferol 1,000 UNITS (25 MCG) TAB PO SCH (10:10)
[2023-11-06] MEDS: Clopidogrel Bisulfate 75 MG TAB PO SCH (10:10)
[2023-11-06] MEDS: Senokot S 8.6-50 MG TAB PO SCH ×2 (10:10→21:09)
[2023-11-06] MEDS: Carbidopa/Levodopa 25-100 mg Tablet PO SCH ×3 (10:11→20:44)
[2023-11-06] MEDS: Polyethylene Glycol 3350 17 GM Packet PO SCH (10:11)
[2023-11-06] MEDS: Heparin 5,000 UNITS/ML VIAL SC SCH ×2 (10:11→20:44)
[2023-11-06] MEDS: Venlafaxine XR 37.5 MG CAP PO SCH (10:12)
[2023-11-06 19:08] VITALS: BP 122/71; TEMP 97.6
[2023-11-06] MEDS: Atorvastatin Calcium 10 MG TAB PO SCH (20:44)
[2023-11-06] MEDS: Melatonin 3 MG TAB PO PRN (20:52)
== END 2023-11-06 21:02 | disposition home health service (06) | DRG 304 ==
LOC: CSHTELE 21:31 → OBSVTOIN 22:23 → CSHIMCU 10-19 01:17 → CSHTELE 10-23 02:56
PROVIDERS: ADMIT Internal Medicine; ATTEND Hospitalist
DX: I16.1 Hypertensive emergency (principal); G93.41 Metabolic encephalopathy; E87.20 Acidosis, unspecified; N39.0 Urinary tract infection, site not specified; N18.4 Chronic kidney disease, stage 4 (severe); I50.32 Chronic diastolic (congestive) heart failure; I5A Non-ischemic myocardial injury (non-traumatic); I13.0 Hypertensive heart and chronic kidney disease with heart failure and stage 1 through stage 4 chronic kidney disease, or unspecified chronic kidney disease; K59.09 Other constipation; G20.A1 Parkinson's disease without dyskinesia, without mention of fluctuations; M79.2 Neuralgia and neuritis, unspecified; E86.0 Dehydration; R31.9 Hematuria, unspecified; I73.9 Peripheral vascular disease, unspecified; I25.10 Atherosclerotic heart disease of native coronary artery without angina pectoris; Z90.49 Acquired absence of other specified parts of digestive tract; Z98.890 Other specified postprocedural states; Z87.891 Personal history of nicotine dependence; Z82.49 Family history of ischemic heart disease and other diseases of the circulatory system; Z79.899 Other long term (current) drug therapy; Z90.710 Acquired absence of both cervix and uterus; Z95.820 Peripheral vascular angioplasty status with implants and grafts; Z88.2 Allergy status to sulfonamides; Z88.8 Allergy status to other drugs, medicaments and biological substances; Z79.82 Long term (current) use of aspirin
CPT/HCPCS: 36415; 36416; 74176; 80048; 83735; 84484; 85025; 93306; C9113; J0290; J0696; J1644; J2765; J3010; J3475; J3490; J7050; J7120; J7999